=== PATIENT | male | born 1965 | race Caucasian/White ===

== ENCOUNTER 2017-02-05 19:26 | Inpatient (IN) | payer OTHER ==
[~2017-02-05] VITALS: Ht 175.3 cm; Wt 85.0 kg
--- NOTE | 2017-02-05 19:50 | RAD ---
CT HEAD WO CONTRAST dated 02/05/2017 7:26 PM Indication: Sudden onset weakness, left arm numbness, possible CVA. Comparison: No comparison is available. Technique: Contiguous axial imaging of the head was performed from skull base to vertex. No contrast administered. One or more of the following individualized dose reduction techniques were utilized for this examination: 1. Automated exposure control 2. Adjustment of the mA and/or kV according to patient size 3. Use of iterative reconstruction technique Findings: Study is somewhat limited by motion artifact. Ventricles and sulci are within normal limits for age. No midline shift or mass effect. Brain parenchyma is of normal attenuation. No hemorrhage or extra-axial collection. Beam Mitchell artifact at the skull base limits evaluation of the posterior fossa and brainstem. Visualized paranasal sinuses and mastoid air cells are clear. No apparent calvarial abnormality. IMPRESSION: 1. No evidence of acute intracranial hemorrhage or mass. 2. No CT evidence of acute CVA. If there is persistent clinical concern for evolving infarct, MRI could better evaluate. Results discussed with ER physician at approximately 7:40 PM on the day of the exam. Electronically signed by: Vamshi Lambert MD (02/05/2017 7:47 PM) [facility]
[2017-02-05 19:53] LABS: BASO # 0.1 x10^3/uL (0.0-0.2); BASO % 1 % (0-3); EOS % 1 % (0-3); HEMATOCRIT 41.8 % (39.0-53.0); HEMOGLOBIN 14.3 g/dL (13.0-17.5); LYMPH # 1.5 x10^3/uL (1.0-4.8); LYMPH % 13 % (24-48); MEAN CORPUSCULAR HEMOGLOBIN 31 pg (25-35); MEAN CORPUSCULAR HGB CONC 34 g/dL (31-37); MEAN CORPUSCULAR VOLUME 91 fL (79-100); MONO % 8 % (0-9); NEUT % 77 % (31-73); PLATELET COUNT 230 x10^3/uL (140-400); RED BLOOD COUNT 4.57 x10^6/uL (4.30-5.70); RED CELL DISTRIBUTION WIDTH 12.7 % (11.5-14.5); WHITE BLOOD COUNT 12.1 x10^3/uL (4.0-11.0)
[2017-02-05 20:02] LABS: PROTHROMBIN TIME PATIENT 12.4 SEC (11.7-14.0)
[2017-02-05 20:03] LABS: CALCIUM 9.5 mg/dL (8.5-10.1); CREATININE 1.2 mg/dL (0.7-1.3); GFR 63.8; POTASSIUM 3.7 mmol/L (3.5-5.1)
[2017-02-05] MEDS ORDERED: ASPIRIN 325 MG TABLET ONE (20:21)
[2017-02-05] MEDS ORDERED: fentaNYL PF VIAL 100 MCG/2 ML VIAL IV PRN (20:30)
[2017-02-05] MEDS ORDERED: ONDANSETRON PF 4 MG/2 ML VIAL. IV ONE (20:45)
[2017-02-05] MEDS ORDERED: ASPIRIN 325 MG TABLET PO ONE (20:45)
[2017-02-05] MEDS ORDERED: ZOLPIDEM 5 MG TABLET. PO PRN (21:30)
[2017-02-05] MEDS ORDERED: cloNIDine HCL 0.1 MG TABLET PO PRN (21:30)
[2017-02-05] MEDS ORDERED: IBUPROFEN 600 MG TABLET. PO PRN (21:30)
[2017-02-05] MEDS ORDERED: diazePAM 2 MG TABLET PO PRN (21:30)
--- NOTE | 2017-02-05 21:35 | PDOC1 ---
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 ALso difficulty in punching the codes/numbers that he usually would do at work with no difficulty. Happened around 5: 30 PM (within TPA window). he arrived via EMS as a code stroke, BUt NIH scale is 1, no slurred speech or facial asymmetry, is weak on left side maybe 4/5 from 5/5 on RT, NUmbness still persists on left fingers and 10/10 incapacitating headache shoots up to his back, nape and whole head, BP better, was high on admit. Also on MMT, demonstrates sciatica like sxs from feet all the way to his hip on RT leg raising,Only past medical is gout on ibuprofen and allopurinol prn. Gets gout in his feet, none currently/. NOt known HTN, no CVA or DM or CAD, Non smoker, occasional etoh drinker Addendum: report now in had soem SZ like activity, lower body shaking? Pt does have some gaps/lapse in memory from the whole event today but no TOTAl LOC,. HE could hear people calling his name,asking him to drink water Past Medical History Rheumatologic: Gout Past Surgical History Past Surgical History: No pertinent history Family History Family History: Hypertension Social History Smoke: No ALCOHOL: occassional Drugs: None Current Medications Current Medications Current Medications Aspirin (Debi Aspirin) 325 mg STK-MED ONCE .ROUTE ; Start 02/05/17 at 20:21; Stop 02/05/17 at 20:22; Status DC Fentanyl Citrate (Fentanyl 2ml Vial) 25 mcg PRN Q15MIN PRN IV PAIN GREATER THAN 3/10 Last administered on 02/05/17 20:41; Start 02/05/17 at 20:30; Stop at 20:29 Ondansetron HCl (Zofran) 4 mg 1X ONCE IV Last administered on 02/05/17 20:39 ; Start 02/05/17 at 20:45; Stop 02/05/17 at 20:46; Status DC Aspirin (Debi Aspirin) 325 mg 1X ONCE PO Last administered on 02/05/17t 20:38 ; Start 02/05/17 at 20:45; Stop 02/05/17 at 20:46; Status DC Allergies Allergies: Coded Allergies: No Known Drug Allergies (Unverified , 02/05/17) ROS Review of System per HPI, all esle is neg Physical Exam General: Alert, Oriented X3, Cooperative, No acute distress HEENT: PERRLA Lungs: Clear to auscultation Heart: S1S2, RRR, no thrills, no rubs, no gallops, no murmurs Cardiovascular: S1, S2 Abdomen: Normal bowel sounds, Soft, No tenderness, No hepatosplenomegaly, No masses Male Genitals Exam: normal genitalia, normal prostate Extremities: No clubbing, No cyanosis, No edema, Normal pulses, No tenderness/ swelling Skin: No rashes, No breakdown, No significant lesion Neuro: Normal gait, Normal speech, Normal tone, Sensation intact, Cranial nerves 3-12 NL, Reflexes 2+, Other (4/5 MMT RUE and RLE, Positive SLR RT leg) Vitals Vitals Vital Signs Date Time Temp Pulse Resp B/P (MAP) Pulse Ox O2 Delivery O2 Flow Rate FiO2 02/05/17 20:46 92 18 153/86 (108) 96 Room Air 02/05/17 19:26 98.2 98.2 Labs Labs Laboratory Tests Test 02/05/17 19:35 02/05/17 19:40 Glucose (Fingerstick) 133 mg/dL (70-99) White Blood Count 12.1 x10^3/uL (4.0-11.0) Red Blood Count 4.57 x10^6/uL (4.30-5.70) Hemoglobin 14.3 g/dL (13.0-17.5) Hematocrit 41.8 % (39.0-53.0) Mean Corpuscular Volume 91 fL (79-100) Mean Corpuscular Hemoglobin 31 pg (25-35) Mean Corpuscular Hemoglobin Concent 34 g/dL (31-37) Red Cell Distribution Width 12.7 % (11.5-14.5) Platelet Count 230 x10^3/uL (140-400) Neutrophils (%) (Auto) 77 % (31-73) Lymphocytes (%) (Auto) 13 % (24-48) Monocytes (%) (Auto) 8 % (0-9) Eosinophils (%) (Auto) 1 % (0-3) Basophils (%) (Auto) 1 % (0-3) Neutrophils # (Auto) 9.3 x10^3uL (1.8-7.7) Lymphocytes # (Auto) 1.5 x10^3/uL (1.0-4.8) Monocytes # (Auto) 1.0 x10^3/uL (0.0-1.1) Eosinophils # (Auto) 0.1 x10^3/uL (0.0-0.7) Basophils # (Auto) 0.1 x10^3/uL (0.0-0.2) Prothrombin Time 12.4 SEC (11.7-14.0) Prothromb Time International Ratio 1.0 (0.8-1.1) Activated Partial Thromboplast Time 26 SEC (24-38) Sodium Level 143 mmol/L (136-145) Potassium Level 3.7 mmol/L (3.5-5.1) Chloride Level 105 mmol/L (98-107) Carbon Dioxide Level 26 mmol/L (21-32) Anion Gap 12 (6-14) Blood Urea Nitrogen 20 mg/dL (8-26) Creatinine 1.2 mg/dL (0.7-1.3) Estimated GFR (Cockcroft-Gault) 63.8 Glucose Level 127 mg/dL (70-99) Calcium Level 9.5 mg/dL (8.5-10.1) Troponin I Quantitative < 0.017 ng/mL (0.000-0.055) Laboratory Tests Test 02/05/17 19:35 02/05/17 19:40 Glucose (Fingerstick) 133 mg/dL (70-99) White Blood Count 12.1 x10^3/uL (4.0-11.0) Red Blood Count 4.57 x10^6/uL (4.30-5.70) Hemoglobin 14.3 g/dL (13.0-17.5) Hematocrit 41.8 % (39.0-53.0) Mean Corpuscular Volume 91 fL (79-100) Mean Corpuscular Hemoglobin 31 pg (25-35) Mean Corpuscular Hemoglobin Concent 34 g/dL (31-37) Red Cell Distribution Width 12.7 % (11.5-14.5) Platelet Count 230 x10^3/uL (140-400) Neutrophils (%) (Auto) 77 % (31-73) Lymphocytes (%) (Auto) 13 % (24-48) Monocytes (%) (Auto) 8 % (0-9) Eosinophils (%) (Auto) 1 % (0-3) Basophils (%) (Auto) 1 % (0-3) Neutrophils # (Auto) 9.3 x10^3uL (1.8-7.7) Lymphocytes # (Auto) 1.5 x10^3/uL (1.0-4.8) Monocytes # (Auto) 1.0 x10^3/uL (0.0-1.1) Eosinophils # (Auto) 0.1 x10^3/uL (0.0-0.7) Basophils # (Auto) 0.1 x10^3/uL (0.0-0.2) Prothrombin Time 12.4 SEC (11.7-14.0) Prothromb Time International Ratio 1.0 (0.8-1.1) Activated Partial Thromboplast Time 26 SEC (24-38) Sodium Level 143 mmol/L (136-145) Potassium Level 3.7 mmol/L (3.5-5.1) Chloride Level 105 mmol/L (98-107) Carbon Dioxide Level 26 mmol/L (21-32) Anion Gap 12 (6-14) Blood Urea Nitrogen 20 mg/dL (8-26) Creatinine 1.2 mg/dL (0.7-1.3) Estimated GFR (Cockcroft-Gault) 63.8 Glucose Level 127 mg/dL (70-99) Calcium Level 9.5 mg/dL (8.5-10.1) Troponin I Quantitative < 0.017 ng/mL (0.000-0.055) VTE Prophylaxis Ordered VTE Prophylaxis Devices: Yes VTE Pharmacological Prophylaxi: Yes Assessment/Plan Assessment/Plan 1. RT UE and RLE weakness, 4./5 on MMT, numbness RT fingers 2. POssible SZ like activity - no HX SZ, some lapse in memory but no TOTAl LOC, no urinary or bowel incontinence - as per report, family did not witness it 3. Hx gout, none active now 4. Accelerated hTN POA<, better - no dx of HTN PLAn: Admit Neuro checks (NIH scale 1) MRI brain mary jo ASA qD - got ASA at er Check lipids Keep tele SZ watch prn pushes iV for BP excursions PT./OT COnsult physiatry re possible sciatica RT leg - if proven to be can start some pO meds PO pain meds for h.a I did not choose tramadol since can lower SZ threshold and given ? SZ like activity in the field Dw ER MD [facility] and [facility] HEAD an dpt and family at bedside EDVIN MARTINO MD Feb 05, 2017 21:35
[2017-02-05] MEDS: ONDANSETRON PF 4 MG/2 ML VIAL. IV PRN (21:47)
[2017-02-05] MEDS: fentaNYL PF VIAL 100 MCG/2 ML VIAL IV PRN (21:58)
[2017-02-05] MEDS ORDERED: CONTRAST GIVEN MC PRN (22:00)
[2017-02-05] MEDS ORDERED: IOHEXOL 350 MG/ML 100 ML VIAL. IV ONE (22:00)
--- NOTE | 2017-02-05 22:35 | RAD ---
CTA head and neck with contrast dated 02/05/2017. Comparison made to head CT dated 02/05/2017. CLINICAL INDICATION: Possible seizure. Left-sided weakness. Severe headache. TECHNIQUE: Contiguous axial imaging of the head and neck performed following the intravenous administration of 75 cc Omnipaque 350. Study performed as dedicated CTA with thin cut coronal and sagittal MIPS reconstructions and 3-D rotational reconstructions. One or more of the following individualized dose reduction techniques were utilized for this examination: 1. Automated exposure control 2. Adjustment of the mA and/or kV according to patient size 3. Use of iterative reconstruction technique Carotid Stenosis calculations for CT, MR, and conventional angiography are based upon measurements of the distal ICA diameter in accordance with the NASCET methodology. Stenosis calculations for carotid ultrasound studies are derived from validated velocity criteria which are known to correlate with the NASCET methodology. FINDINGS: Contrast bolus is adequate. Aortic arch is normal in caliber. Arch anatomy is standard. Bilateral subclavian and vertebral arteries are patent. No intimal flap or focal stenosis. Common carotid arteries are patent at the origin. No significant calcific or soft plaque at the carotid bifurcation. Bilateral internal carotid arteries are patent to the skull base. No significant stenosis. Petrous and cavernous internal carotid arteries are patent. Bilateral FAUSTINO and MCA branches are symmetric. Patent anterior communicating artery. No stenosis or aneurysm. Intradural vertebral arteries are patent. Basilar artery is well formed. Bilateral ror engineer are patent. Postcontrast imaging of the brain shows no abnormal enhancement. Dural venous sinuses are grossly patent. Paranasal sinuses and mastoid air cells are clear. No significant soft tissue abnormality. Limited images of lung apices are clear. No apparent bony abnormality. IMPRESSION: 1. No evidence of hemodynamically significant stenosis or aneurysm. Electronically signed by: Vamshi Lambert MD (02/05/2017 10:31 PM) [facility]
[2017-02-05 22:53] LABS: BILIRUBIN,URINE NEGATIVE (NEG); GLUCOSE,URINE NEGATIVE (NEG); NITRITE,URINE NEGATIVE (NEG); PROTEIN,URINE NEGATIVE (NEG-TRACE); UROBILINOGEN,URINE 0.2 mg/dL (0.2 mg/dL)
[2017-02-05 22:58] LABS: BARBITURATES NEG (NEG); BENZODIAZEPINES NEG (NEG); CANNABINOIDS NEG (NEG); COCAINE NEG (NEG); METHADONE NEG (NEG); OPIATES NEG (NEG); PHENCYCLIDINE NEG (NEG)
[2017-02-05 22:59] LABS: BACTERIA,URINE 0 /HPF (0-FEW); RBC,URINE 0 /HPF (0-2); SQUAMOUS EPITHELIAL CELL,UR FEW /LPF
[2017-02-05 23:00] VITALS: BP 147/84
--- NOTE | 2017-02-05 23:00 | ED.ADGEN ---
Past Medical History Past Medical History: Other Additional Past Medical Histor: gout Past Surgical History: No Surgical History Alcohol Use: None Drug Use: None Adult General Chief Complaint Chief Complaint: NEURO SYMPTOMS/DEFICITS HPI HPI Patient is a 51 year old woman, history of gout, for which he takes indomethacin, who presents to the emergency department via EMS with report of headache, blurred vision, and weakness the left upper extremity and left lower extremity associated with numbness in the left upper and lower extremity. Code stroke was called en route based on EMS report, patient was taken immediately to the CT scanner for imaging upon arrival to the emergency department. He denies any difficult swallowing or breathing, any chest pain or shortness breath , any difficulty with speech, any injuries, any similar symptoms previously. Patient states he has experienced headache such as this before "not this bad", states begins in the back of his head and radiates to the top of his head. No injuries, no neck pain, no fevers or chills. Upon arousing the emergency department, patient complains of feeling weak in his left upper extremity, and his right lower extremity, with numbness and tingling. Denies any other complaints. Initial INH of 1, for decreased sensation in the left upper and lower extremity. Patient does have 5-5 strength on both sides and examination, otherwise unremarkable. Denies any drugs, alcohol, cigarettes, states he isn't taking Excedrin as needed over the past several weeks due to headaches. Review of Systems Review of Systems Constitutional: Denies fever or chills. [] Eyes: Denies change in visual acuity. [] HENT: Denies nasal congestion or sore throat. [] Respiratory: Denies cough or shortness of breath. [] Cardiovascular: Denies chest pain or edema. [] GI: Denies abdominal pain, nausea, vomiting, bloody stools or diarrhea. [] : Denies dysuria. [] Musculoskeletal: Denies back pain or joint pain. [] Integument: Denies rash. [] Neurologic: Complaining of headache, with focal weakness in the left upper and left lower extremity, associated with numbness and tingling. Blurred vision in both eyes. No visual field deficits. Endocrine: Denies polyuria or polydipsia. [] Lymphatic: Denies swollen glands. [] Psychiatric: Denies depression or anxiety. [] Current Medications Current Medications Current Medications Medications (Trade) Dose Ordered Sig/Manuel Start Time Stop Time Status Last Admin Dose Admin Aspirin (Debi Aspirin) 325 mg STK-MED ONCE 02/05/17 20:21 02/05/17 20:22 DC Allergies Allergies Allergies Coded Allergies Type Severity Reaction Last Updated Verified No Known Drug Allergies 02/05/17 No Physical Exam Physical Exam Constitutional: Well developed, well nourished, no acute distress, non-toxic appearance. [] HENT: Normocephalic, atraumatic, bilateral external ears normal, oropharynx moist, no oral exudates, nose normal. [] Eyes: PERRLA, EOMI, conjunctiva normal, no discharge. [] Neck: Normal range of motion, no tenderness, supple, no stridor. [] Cardiovascular:Heart rate regular rhythm, no murmur [] Lungs & Thorax: Bilateral breath sounds clear to auscultation [] Abdomen: Bowel sounds normal, soft, no tenderness, no masses, no pulsatile masses. [] Skin: Warm, dry, no erythema, no rash. [] Back: No tenderness, no CVA tenderness. [] Extremities: No tenderness, no cyanosis, no clubbing, ROM intact, no edema. [] Neurologic: Alert and oriented X 3, normal motor function, normal sensory function, no focal deficits noted. [] Psychologic: Affect normal, judgement normal, mood normal. [] Current Patient Data Vital Signs Vital Signs Date Time Temp Pulse Resp B/P (MAP) Pulse Ox O2 Delivery O2 Flow Rate FiO2 02/05/17 20:26 96 18 148/87 (107) 98 Room Air 02/05/17 19:26 98.2 98.2 Lab Values Laboratory Tests Test 02/05/17 19:35 02/05/17 19:40 Glucose (Fingerstick) 133 mg/dL (70-99) H White Blood Count 12.1 x10^3/uL (4.0-11.0) H Red Blood Count 4.57 x10^6/uL (4.30-5.70) Hemoglobin 14.3 g/dL (13.0-17.5) Hematocrit 41.8 % (39.0-53.0) Mean Corpuscular Volume 91 fL (79-100) Mean Corpuscular Hemoglobin 31 pg (25-35) Mean Corpuscular Hemoglobin Concent 34 g/dL (31-37) Red Cell Distribution Width 12.7 % (11.5-14.5) Platelet Count 230 x10^3/uL (140-400) Neutrophils (%) (Auto) 77 % (31-73) H Lymphocytes (%) (Auto) 13 % (24-48) L Monocytes (%) (Auto) 8 % (0-9) Eosinophils (%) (Auto) 1 % (0-3) Basophils (%) (Auto) 1 % (0-3) Neutrophils # (Auto) 9.3 x10^3uL (1.8-7.7) H Lymphocytes # (Auto) 1.5 x10^3/uL (1.0-4.8) Monocytes # (Auto) 1.0 x10^3/uL (0.0-1.1) Eosinophils # (Auto) 0.1 x10^3/uL (0.0-0.7) Basophils # (Auto) 0.1 x10^3/uL (0.0-0.2) Prothrombin Time 12.4 SEC (11.7-14.0) Prothrombin Time INR 1.0 (0.8-1.1) PTT 26 SEC (24-38) Sodium Level 143 mmol/L (136-145) Potassium Level 3.7 mmol/L (3.5-5.1) Chloride Level 105 mmol/L (98-107) Carbon Dioxide Level 26 mmol/L (21-32) Anion Gap 12 (6-14) Blood Urea Nitrogen 20 mg/dL (8-26) Creatinine 1.2 mg/dL (0.7-1.3) Estimated GFR (Cockcroft-Gault) 63.8 Glucose Level 127 mg/dL (70-99) H Calcium Level 9.5 mg/dL (8.5-10.1) Troponin I Quantitative < 0.017 ng/mL (0.000-0.055) Laboratory Tests 02/05/17 19:40 Laboratory Tests 02/05/17 19:40 EKG EKG EC: Sinus tachycardia, heart rate 104, upright axis, QTC of 421, HI 126, QRS of 86, no ST elevations or depressions, no prior for comparison, as interpreted by me. Radiology/Procedures Radiology/Procedures Patient with a GCS of 15, with an NIH of 1, due to diminished sensation reported in the upper and lower extremity, CT discussed with radiologist no acute findings identified. I did discuss these findings with Dr. Martin, as patient is now sitting his symptoms began around 5:30, we are beyond the window for TPA, TPA would not be indicated this time due to the patient's low any stroke scale. I did discuss findings with patient and family at bedside, is agreeable for [facility] or the hospital obtaining MRI and stroke workup. Patient's EMS crew return to the emergency department in transferring another patient, and gave me additional information, that I was not aware previously, that the patient was witnessed exhibiting "a total body shaking seizure-like activity", by his coworkers while he was in the cab of his vehicle. I discussed this with patient, he does not recall this occurring, states he remembers eating in the vehicle, and then was being given water. As stated, this information was not immediately relayed to me. Patient is still complaint of headache, has received fentanyl in the ED, and Zofran. INH stroke scale remains 1. No other change in symptoms or examination. I did speak with Dr. Martin, and update her with these findings. Patient recommendation, will obtain CTA of the head and neck at this time, and then obtain MRI brain with and without contrast , per protocol. Patient seizure precautions, no further seizure activity or other maladies identified. CTA obtained, does not reveal evidence of concerning findings. I did speak with Dr. Limon of internal medicine, patient accepted to her service as a full admission to the medical telemetry floor, for further evaluation of neurologic symptoms, possible CVA versus new onset seizure, bridge orders entered per discussion. Patient remained stable in the emergency department at time of transfer to the floor. Course & Med Decision Making Course & Med Decision Making Pertinent Labs and Imaging studies reviewed. (See chart for details) [] Dragon Disclaimer Dragon Disclaimer This electronic medical record was generated, in whole or in part, using a voice recognition dictation system. Departure Impression: Primary Impression: Seizure Additional Impressions: Headache Left-sided weakness Disposition: ADMITTED INPATIENT Admitting Physician: Marissa Limon Condition: IMPROVED Problem Qualifiers ANNA PEGUERO DO Feb 05, 2017 23:00
[2017-02-05 23:25] VITALS: BP 147/84
[2017-02-06] MEDS: fentaNYL PF VIAL 100 MCG/2 ML VIAL IV PRN ×3 (01:59→08:13)
[2017-02-06] MEDS ORDERED: ALLO300T PO (02:19)
[2017-02-06] MEDS ORDERED: ibuprofen (02:19)
[2017-02-06 03:10] VITALS: BP 131/78
[2017-02-06] MEDS: ONDANSETRON PF 4 MG/2 ML VIAL. IV PRN ×2 (05:28→14:01)
--- NOTE | 2017-02-06 06:33 | EKG ---
[facility] [address] [place] [address] Test Date: 2017-02-05 Test Time: 19:37:27 Pat Name: KEV MIDDLETON Department: Room: 3 1 Gender: M Survey Research Professor: : 1965 Requested By: ANNA PEGUERO Order Number: [id number] Reading MD: Navdeep Tapia Measurements Intervals Starlight Rate: 104 P: 41 MN: 126 QRS: 39 QRSD: 86 T: 15 QT: 316 QTc: 421 Interpretive Statements SINUS TACHYCARDIA Electronically Signed On 02-11-2017 10:17:39 CDT by Navdeep Tapia
[2017-02-06 07:00] VITALS: BP 129/86
[2017-02-06 07:39] LABS: ISTAT INR 1.1 (0.9-1.1)
[2017-02-06 07:41] LABS: POTASSIUM ISTAT 3.7 mmol/L (3.5-5.0)
--- NOTE | 2017-02-06 08:03 | RAD ---
Portable chest, 02/05/2017: History: Weakness, syncope The heart size and pulmonary vascularity are normal. No pulmonary infiltrates are seen. There is no evidence of pleural fluid. Moderate spurring is present in the spine. IMPRESSION: No acute cardiopulmonary abnormality is detected.
[2017-02-06] MEDS: ASPIRIN 325 MG TABLET PO SCH (08:13)
[2017-02-06] MEDS ORDERED: MECLIZINE HCL 12.5 MG TABLET. PO PRN (08:45)
--- NOTE | 2017-02-06 09:04 | PDOC ---
PROGRESS NOTES Subjective Subjective She did not sleep well. Objective Objective Vital Signs Date Time Temp Pulse Resp B/P (MAP) Pulse Ox O2 Delivery O2 Flow Rate FiO2 02/06/17 08:13 97 Nasal Cannula 2.0 02/06/17 07:00 97.6 86 18 129/86 (100) 97.6 Physical Exam Physical Exam She is alert and comfortable and continues with [id number] using left upper extremity and dizziness with mobility. Assessment Assessment Problems Medical Problems: (1) Headache Status: Acute (2) Seizure Status: Acute Plan Plan of Care To rehab when medically stable. Comment Review of Relevant I have reviewed the following items anders (where applicable) has been applied. Labs Laboratory Tests Test 02/05/17 19:35 02/05/17 19:40 02/05/17 19:45 02/05/17 19:54 Glucose (Fingerstick) 133 mg/dL (70-99) White Blood Count 12.1 x10^3/uL (4.0-11.0) Red Blood Count 4.57 x10^6/uL (4.30-5.70) Hemoglobin 14.3 g/dL (13.0-17.5) Hematocrit 41.8 % (39.0-53.0) Mean Corpuscular Volume 91 fL (79-100) Mean Corpuscular Hemoglobin 31 pg (25-35) Mean Corpuscular Hemoglobin Concent 34 g/dL (31-37) Red Cell Distribution Width 12.7 % (11.5-14.5) Platelet Count 230 x10^3/uL (140-400) Neutrophils (%) (Auto) 77 % (31-73) Lymphocytes (%) (Auto) 13 % (24-48) Monocytes (%) (Auto) 8 % (0-9) Eosinophils (%) (Auto) 1 % (0-3) Basophils (%) (Auto) 1 % (0-3) Neutrophils # (Auto) 9.3 x10^3uL (1.8-7.7) Lymphocytes # (Auto) 1.5 x10^3/uL (1.0-4.8) Monocytes # (Auto) 1.0 x10^3/uL (0.0-1.1) Eosinophils # (Auto) 0.1 x10^3/uL (0.0-0.7) Basophils # (Auto) 0.1 x10^3/uL (0.0-0.2) Prothrombin Time 12.4 SEC (11.7-14.0) 13.0 Sec (10.0-14.0) Prothromb Time International Ratio 1.0 (0.8-1.1) Activated Partial Thromboplast Time 26 SEC (24-38) Sodium Level 143 mmol/L (136-145) Potassium Level 3.7 mmol/L (3.5-5.1) Chloride Level 105 mmol/L (98-107) Carbon Dioxide Level 26 mmol/L (21-32) Anion Gap 12 (6-14) 17 mmol/L (6-14) Blood Urea Nitrogen 20 mg/dL (8-26) Creatinine 1.2 mg/dL (0.7-1.3) Estimated GFR (Cockcroft-Gault) 63.8 Glucose Level 127 mg/dL (70-99) 127 mg/dL (70-99) Calcium Level 9.5 mg/dL (8.5-10.1) Troponin I Quantitative < 0.017 ng/mL (0.000-0.055) Bedside Hemoglobin 13.3 g/dL (14-18) Bedside Hematocrit 39 % (37-52) Bedside Sodium 144 mmol/L (135-145) Bedside Potassium 3.7 mmol/L (3.5-5.0) Bedside Chloride 108 mmol/L (98-110) Bedside Total CO2 23 mmol/L (23-32) Bedside Blood Urea Nitrogen 18 mg/dL (8-26) Bedside Creatinine 1.1 mg/dL (0.5-1.4) Bedside Ionized Calcium (Rcahael) 1.15 mmol/L (1.13-1.32) Bedside INR (LAB) 1.1 (0.9-1.1) Test 02/05/17 22:48 Urine Collection Type Unknown Urine Color Yellow Urine Clarity Turbid Urine pH 6.0 Urine Specific [place] >=1.030 Urine Protein Negative mg/dL (NEG-TRACE) Urine Glucose (UA) Negative mg/dL (NEG) Urine Ketones (Stick) 15 mg/dL (NEG) Urine Blood Negative (NEG) Urine Nitrite Negative (NEG) Urine Bilirubin Negative (NEG) Urine Urobilinogen Dipstick 0.2 mg/dL (0.2 mg/dL) Urine Leukocyte Esterase Negative (NEG) Urine RBC 0 /HPF (0-2) Urine WBC 5-10 /HPF (0-4) Urine Squamous Epithelial Cells Few /LPF Urine Amorphous Sediment Present /HPF Urine Bacteria 0 /HPF (0-FEW) Urine Mucus Marked /LPF Urine Opiates Screen Neg (NEG) Urine Methadone Screen Neg (NEG) Urine Barbiturates Neg (NEG) Urine Phencyclidine Screen Neg (NEG) Urine Amphetamine/Methamphetamine Neg (NEG) Urine Benzodiazepines Screen Neg (NEG) Urine Cocaine Screen Neg (NEG) Urine Cannabinoids Screen Neg (NEG) Urine Ethyl Alcohol Neg (NEG) Laboratory Tests Test 02/05/17 19:35 02/05/17 19:40 02/05/17 19:45 02/05/17 19:54 Glucose (Fingerstick) 133 mg/dL (70-99) White Blood Count 12.1 x10^3/uL (4.0-11.0) Red Blood Count 4.57 x10^6/uL (4.30-5.70) Hemoglobin 14.3 g/dL (13.0-17.5) Hematocrit 41.8 % (39.0-53.0) Mean Corpuscular Volume 91 fL (79-100) Mean Corpuscular Hemoglobin 31 pg (25-35) Mean Corpuscular Hemoglobin Concent 34 g/dL (31-37) Red Cell Distribution Width 12.7 % (11.5-14.5) Platelet Count 230 x10^3/uL (140-400) Neutrophils (%) (Auto) 77 % (31-73) Lymphocytes (%) (Auto) 13 % (24-48) Monocytes (%) (Auto) 8 % (0-9) Eosinophils (%) (Auto) 1 % (0-3) Basophils (%) (Auto) 1 % (0-3) Neutrophils # (Auto) 9.3 x10^3uL (1.8-7.7) Lymphocytes # (Auto) 1.5 x10^3/uL (1.0-4.8) Monocytes # (Auto) 1.0 x10^3/uL (0.0-1.1) Eosinophils # (Auto) 0.1 x10^3/uL (0.0-0.7) Basophils # (Auto) 0.1 x10^3/uL (0.0-0.2) Prothrombin Time 12.4 SEC (11.7-14.0) 13.0 Sec (10.0-14.0) Prothromb Time International Ratio 1.0 (0.8-1.1) Activated Partial Thromboplast Time 26 SEC (24-38) Sodium Level 143 mmol/L (136-145) Potassium Level 3.7 mmol/L (3.5-5.1) Chloride Level 105 mmol/L (98-107) Carbon Dioxide Level 26 mmol/L (21-32) Anion Gap 12 (6-14) 17 mmol/L (6-14) Blood Urea Nitrogen 20 mg/dL (8-26) Creatinine 1.2 mg/dL (0.7-1.3) Estimated GFR (Cockcroft-Gault) 63.8 Glucose Level 127 mg/dL (70-99) 127 mg/dL (70-99) Calcium Level 9.5 mg/dL (8.5-10.1) Troponin I Quantitative < 0.017 ng/mL (0.000-0.055) Bedside Hemoglobin 13.3 g/dL (14-18) Bedside Hematocrit 39 % (37-52) Bedside Sodium 144 mmol/L (135-145) Bedside Potassium 3.7 mmol/L (3.5-5.0) Bedside Chloride 108 mmol/L (98-110) Bedside Total CO2 23 mmol/L (23-32) Bedside Blood Urea Nitrogen 18 mg/dL (8-26) Bedside Creatinine 1.1 mg/dL (0.5-1.4) Bedside Ionized Calcium (Rachael) 1.15 mmol/L (1.13-1.32) Bedside INR (LAB) 1.1 (0.9-1.1) Test 02/05/17 22:48 Urine Collection Type Unknown Urine Color Yellow Urine Clarity Turbid Urine pH 6.0 Urine Specific [place] >=1.030 Urine Protein Negative mg/dL (NEG-TRACE) Urine Glucose (UA) Negative mg/dL (NEG) Urine Ketones (Stick) 15 mg/dL (NEG) Urine Blood Negative (NEG) Urine Nitrite Negative (NEG) Urine Bilirubin Negative (NEG) Urine Urobilinogen Dipstick 0.2 mg/dL (0.2 mg/dL) Urine Leukocyte Esterase Negative (NEG) Urine RBC 0 /HPF (0-2) Urine WBC 5-10 /HPF (0-4) Urine Squamous Epithelial Cells Few /LPF Urine Amorphous Sediment Present /HPF Urine Bacteria 0 /HPF (0-FEW) Urine Mucus Marked /LPF Urine Opiates Screen Neg (NEG) Urine Methadone Screen Neg (NEG) Urine Barbiturates Neg (NEG) Urine Phencyclidine Screen Neg (NEG) Urine Amphetamine/Methamphetamine Neg (NEG) Urine Benzodiazepines Screen Neg (NEG) Urine Cocaine Screen Neg (NEG) Urine Cannabinoids Screen Neg (NEG) Urine Ethyl Alcohol Neg (NEG) Medications Current Medications Aspirin (Debi Aspirin) 325 mg STK-MED ONCE .ROUTE ; Start 02/05/17 at 20:21; Stop 02/05/17 at 20:22; Status DC Fentanyl Citrate (Fentanyl 2ml Vial) 25 mcg PRN Q15MIN PRN IV PAIN GREATER THAN 3/10 Last administered on 02/05/17 20:41; Start 02/05/17 at 20:30; Stop at 21:53; Status DC Ondansetron HCl (Zofran) 4 mg 1X ONCE IV Last administered on 02/05/17 20:39 ; Start 02/05/17 at 20:45; Stop 02/05/17 at 20:46; Status DC Aspirin ([employer] Aspirin) 325 mg 1X ONCE PO Last administered on 02/05/17 20:38 ; Start 02/05/17 at 20:45; Stop 02/05/17 at 20:46; Status DC Ibuprofen (Motrin) 600 mg PRN Q6HRS PRN PO INFLAMMATION; Start 02/05/17 at 21: 30 Fentanyl Citrate (Fentanyl 2ml Vial) 50 mcg PRN Q2HR PRN IV PAIN Last administered on 02/06/17 08:13; Start 02/05/17 at 21:30 Ondansetron HCl (Zofran) 4 mg PRN Q6HRS PRN IV NAUSEA/VOMITING Last administered on 02/06/17 05:28; Start 02/05/17 at 21:30 Aspirin ([employer] Aspirin) 325 mg DAILYWBKFT PO Last administered on 02/06/17 08: 13; Start 02/06/17 at 08:00 Zolpidem Tartrate (Ambien) 2.5 mg PRN QHS PRN PO INSOMNIA; Start 02/05/17 at 21 :30 Clonidine HCl (Catapres) 0.1 mg PRN Q1HR PRN PO HYPERTENSION, SEE COMMENTS Last administered on 02/05/17 22:20; Start 02/05/17 at 21:30 Diazepam (Valium) 2 mg PRN TID PRN PO ANXIETY; Start 02/05/17 at 21:30 Iohexol (Omnipaque 350 Mg/ml) 75 ml 1X ONCE IV Last administered on 02/05/17 22:21; Start 02/05/17 at 22:00; Stop 02/05/17 at 22:01; Status DC Info (Do NOT chart on this entry -- for MONITORING) 1 each PRN DAILY PRN MC SEE COMMENTS; Start 02/05/17 at 22:00; Stop 02/07/17 at 21:59 Acetaminophen/ Butalbital/ Caffeine (Fioricet) 2 tab PRN Q6HRS PRN PO MIGRAINE HEADACHE; Start 02/06/17 at 08:45 Meclizine HCl (Antivert) 12.5 mg PRN Q6HRS PRN PO DIZZINESS; Start 02/06/17 at 08:45 Active Scripts Active Reported [ibuprofen] PRN Allopurinol 300 Mg Tablet 1 Tab PO DAILY PRN Vitals/I & O Vital Sign - Last 24 Hours 02/05/17 02/05/17 02/05/17 02/05/17 19:26 19:48 19:56 20:06 Temp 98.2 98.2 Pulse 99 102 100 98 Resp 18 20 18 18 B/P (MAP) 154/88 (110) 162/98 (119) 161/90 (113) 157/92 (113) Pulse Ox 98 97 97 98 O2 Delivery Room Air Room Air Room Air Room Air 02/05/17 02/05/17 02/05/17 02/05/17 20:16 20:26 20:36 20:41 Pulse 96 96 96 Resp 18 18 18 18 B/P (MAP) 158/95 (116) 148/87 (107) 152/81 (104) Pulse Ox 97 98 97 97 O2 Delivery Room Air Room Air Room Air Room Air 02/05/17 02/05/17 02/05/17 02/05/17 20:46 20:56 21:06 21:16 Pulse 92 94 90 90 Resp 18 20 16 18 B/P (MAP) 153/86 (108) 142/85 (104) 149/75 (99) 158/85 (109) Pulse Ox 96 94 96 96 O2 Delivery Room Air Room Air Room Air Room Air 02/05/17 02/05/17 02/05/17 02/05/17 21:26 21:36 21:46 21:58 Pulse 90 94 100 Resp 18 16 14 16 B/P (MAP) 152/79 (103) 159/94 (115) 171/89 (116) Pulse Ox 97 98 99 O2 Delivery Room Air Room Air Room Air 02/05/17 02/05/17 02/05/17 02/05/17 22:20 22:21 22:51 23:00 Pulse 92 98 88 Resp 16 18 B/P (MAP) 171/89 158/80 (106) 152/84 (106) Pulse Ox 98 96 O2 Delivery Nasal Cannula Room Air Nasal Cannula O2 Flow Rate 2.0 2.0 02/05/17 02/05/17 02/06/17 02/06/17 23:00 23:25 01:59 03:10 Temp 98.3 98.3 98.1 98.3 98.3 98.1 Pulse 85 76 Resp 18 18 18 18 B/P (MAP) 147/84 (105) 147/84 (105) 131/78 (95) Pulse Ox 94 94 94 95 O2 Delivery Room Air Room Air Nasal Cannula O2 Flow Rate 2.0 2.0 02/06/17 02/06/17 02/06/17 02/06/17 05:28 05:58 07:00 08:13 Temp 97.6 97.6 Pulse 86 Resp 18 18 B/P (MAP) 129/86 (100) Pulse Ox 95 95 97 97 O2 Delivery Nasal Cannula Nasal Cannula Nasal Cannula Nasal Cannula O2 Flow Rate 2.0 2.0 2.0 2.0 TRACIE LOPEZ MD Feb 06, 2017 09:04
--- NOTE | 2017-02-06 10:45 | CONS ---
DATE OF CONSULTATION: 02/06/2017 ATTENDING PHYSICIAN: Dr. Limon. The patient was seen at the request of Dr. Limon for rehab evaluation. 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 The patient with history of gouty arthritis, admitted through the Emergency Room on 02/05/2017 in the evening. While he was trying to park the semi-truck in the dark, had difficulty performing the job. He had difficulty punching the code numbers that he usually would do at work without any difficulty. It happened around 5:30 in the evening on 02/05/2017. He arrived in the Emergency Room as a code stroke by emergency medical service, but NIH scale was 1, no slurred speech or facial asymmetry. He had minimal weakness in his left upper extremity. He continued to have numbness in his left upper and lower extremities and he had severe headache. Blood pressure was high at the time of admission. The patient is a nonsmoker, occasional ethanol user, family history of hypertension. He lives with his family, had stairs to manage. The patient had CT scan of the brain done, which failed to reveal any evidence of any abnormality. Also CTA of his neck failed to reveal any significant stenosis or aneurysm. Chest x-ray was within normal limits. The patient had a good bowel movement yesterday morning. He denies any difficulty with urination. The patient had history of obstructive sleep apnea and uses BiPAP at nighttime. Last night he did not sleep that much despite using oxygen by nasal cannula. ALLERGIES: The patient is not known allergic to any medication. PHYSICAL EXAMINATION: Today revealed a middle-aged male. He is alert, oriented to time, place, person and circumstance and follows commands appropriately, moves all 4 extremities voluntarily where he had 4+/5 grade muscle strength, maybe minimal weakness in his left upper extremity, but not that much noticeable. He had slightly exaggerated left knee and ankle jerks when compared to right side. He had decreased touch and pinprick sensation over left side of his body. No obvious facial asymmetry or communication difficulties or cognitive difficulties were noted. He had diplopia with his left eye looking to the left side and also looking downwards. He felt nauseous when he came to a sitting position, so I have not examined his transfer or ambulation skills at this time. Plantar reflex is flexor bilaterally. Negative Barry and palmomental reflexes. He had good coordination using both upper extremities and lower extremities when I examined him and he is supine. He had tenderness to palpation over cervical paraspinal muscles extending over to upper trapezius muscle area, some pain on range of motion of the cervical spine. He had left olecranon bursa mild effusion and we can palpate some bone spurs in that area. He had minimal tenderness and he admits it will be difficult for him to weightbear on his left elbow while driving. ASSESSMENT: A middle-aged male with headache, neck pain, and hemianesthesia on the left side and diplopia to the left side and slight exaggeration of left knee and ankle jerks to rule out any cerebrovascular accident, also headache with cervical paraspinal and upper trapezius muscle strain. No clinical evidence of cervical radiculopathy and chronic left olecranon bursitis. The patient with history of gouty arthritis. RECOMMENDATIONS: Agree with the MRI scan of his brain, to also obtain MRI scan of his neck and to ask orthopedic consult about his chronic left olecranon bursitis. He might need surgical excision rather than just injection with steroids. Dr. Limon, I appreciate asking me to participate in the care of this interesting patient. I will be glad to follow him with you as needed for rehabilitation. TRACIE LOPEZ MD DR: RADHA/jeni JOB#: [id number] / [id number]
[2017-02-06] MEDS ORDERED: GADOBUTROL 7.5 MMOL/7.5 ML VIAL IV ONE (11:15)
--- NOTE | 2017-02-06 11:29 | RAD ---
INDICATION: Neck pain and bilateral arm weakness. TECHNIQUE: Sagittal T1, sagittal T2, sagittal STIR, axial T2, and axial T2 gradient sequences are provided. No comparison is available. FINDINGS: There is no malalignment. There is no marrow edema. There is no worrisome marrow lesion. There is no cord signal abnormality. Cervicomedullary junction is unremarkable. Degenerative findings by individual level are as follows: C2-C3: There is minimal facet hypertrophy without canal or foraminal compromise. C3-C4: Right uncinate process spurring and minimal facet hypertrophy are noted with mild right foraminal narrowing. C4-C5: There is an irregular disc osteophyte complex. Uncinate process spurring is greater on the right. There is also mild facet hypertrophy. There is mild canal stenosis, midline AP diameter of the thecal sac is 9-10 mm. There is high-grade right and mild left foraminal narrowing. C5-C6: Disc osteophyte complex and uncinate process spurring are noted. There is buckling of ligamentum flavum. There is mild canal stenosis, midline AP diameter of the thecal sac is 9 mm. There is high-grade right and at least [id number] left foraminal narrowing. C6-C7: There is left greater than right facet hypertrophy. There is no canal or foraminal compromise. C7-T1: There is facet hypertrophy without canal or foraminal compromise. IMPRESSION: Degenerative changes in the cervical spine are greatest at C4-C5 and C5-C6. Electronically signed by: Miles Will MD (02/06/2017 11:26 AM) [id number]
--- NOTE | 2017-02-06 11:50 | RAD ---
INDICATION: Headaches and weakness. Seizures. TECHNIQUE: Sagittal T1, axial T1, axial T2, axial FLAIR, axial T2 gradient, oblique coronal FLAIR, diffusion imaging with ADC map, postcontrast axial, and postcontrast coronal sequences are provided. 7.5 mL of intravenous Gadavist was administered without complication. Comparison CT head is from February 05, 2017. FINDINGS: There is mild motion degradation. There is slight asymmetry in size of the lateral ventricles with the left smaller than the right although neither is dilated. This is likely developmental variation. Parenchymal volume is within normal limits for age. There is no acute intracranial hemorrhage or extra-axial fluid collection. There is no mass effect or midline shift. There is no restricted diffusion to suggest an acute infarct. Sagittal midline structures are unremarkable. Pituitary and suprasellar region are unremarkable. Intracranial flow voids are preserved. There is minimal ethmoid mucosal thickening. Oblique coronal imaging through the temporal lobes demonstrates no evidence of mesial temporal sclerosis or temporal lobe mass. There is no evidence of heterotopia. There is no pathologic enhancement. IMPRESSION: 1. Allowing for mild motion degradation, there are no acute intracranial findings. Electronically signed by: Miles Will MD (02/06/2017 11:46 AM) [id number]
--- NOTE | 2017-02-06 11:56 | RAD ---
Indication pain. No history of injury. AP and lateral views of the left elbow were obtained. There is swelling over the olecranon in a fashion compatible with olecranon bursitis. A small spur is additionally noted off the olecranon. No acute bony finding is seen
[2017-02-06] MEDS ORDERED: oxyCODONE IR 5 MG TABLET PO PRN (12:15)
[2017-02-06] MEDS ORDERED: hydrALAZINE 20 MG/ML VIAL. IVP PRN (12:15)
--- NOTE | 2017-02-06 12:24 | PDOC ---
PROGRESS NOTES Chief Complaint Chief Complaint Neurol deficits ASSESSMENT AND PLAN: 1. neurol deficits: type not c/w CVA; MRI brain neg 2. ?peripheral neuropathy/sciatica: d/w Dr Laureano; chronic olecranon bursitis , ortho consult. OT/PT 3. HTN: at admit, now well controlled 4. Gout: not active now History of Present Illness History of Present Illness severe TREVINO Vitals Vitals Vital Signs Date Time Temp Pulse Resp B/P (MAP) Pulse Ox O2 Delivery O2 Flow Rate FiO2 02/06/17 08:43 97 Nasal Cannula 2.0 02/06/17 07:00 97.6 86 18 129/86 (100) 97.6 Physical Exam General: Alert, Oriented X3, Cooperative, No acute distress Heart: Regular rate Lungs: Clear Abdomen: Normal bowel sounds, Soft, No tenderness Extremities: No edema Skin: No rashes Labs LABS Laboratory Tests Test 02/05/17 19:35 02/05/17 19:40 02/05/17 19:45 02/05/17 19:54 Glucose (Fingerstick) 133 mg/dL (70-99) White Blood Count 12.1 x10^3/uL (4.0-11.0) Red Blood Count 4.57 x10^6/uL (4.30-5.70) Hemoglobin 14.3 g/dL (13.0-17.5) Hematocrit 41.8 % (39.0-53.0) Mean Corpuscular Volume 91 fL (79-100) Mean Corpuscular Hemoglobin 31 pg (25-35) Mean Corpuscular Hemoglobin Concent 34 g/dL (31-37) Red Cell Distribution Width 12.7 % (11.5-14.5) Platelet Count 230 x10^3/uL (140-400) Neutrophils (%) (Auto) 77 % (31-73) Lymphocytes (%) (Auto) 13 % (24-48) Monocytes (%) (Auto) 8 % (0-9) Eosinophils (%) (Auto) 1 % (0-3) Basophils (%) (Auto) 1 % (0-3) Neutrophils # (Auto) 9.3 x10^3uL (1.8-7.7) Lymphocytes # (Auto) 1.5 x10^3/uL (1.0-4.8) Monocytes # (Auto) 1.0 x10^3/uL (0.0-1.1) Eosinophils # (Auto) 0.1 x10^3/uL (0.0-0.7) Basophils # (Auto) 0.1 x10^3/uL (0.0-0.2) Prothrombin Time 12.4 SEC (11.7-14.0) 13.0 Sec (10.0-14.0) Prothromb Time International Ratio 1.0 (0.8-1.1) Activated Partial Thromboplast Time 26 SEC (24-38) Sodium Level 143 mmol/L (136-145) Potassium Level 3.7 mmol/L (3.5-5.1) Chloride Level 105 mmol/L (98-107) Carbon Dioxide Level 26 mmol/L (21-32) Anion Gap 12 (6-14) 17 mmol/L (6-14) Blood Urea Nitrogen 20 mg/dL (8-26) Creatinine 1.2 mg/dL (0.7-1.3) Estimated GFR (Cockcroft-Gault) 63.8 Glucose Level 127 mg/dL (70-99) 127 mg/dL (70-99) Calcium Level 9.5 mg/dL (8.5-10.1) Troponin I Quantitative < 0.017 ng/mL (0.000-0.055) Bedside Hemoglobin 13.3 g/dL (14-18) Bedside Hematocrit 39 % (37-52) Bedside Sodium 144 mmol/L (135-145) Bedside Potassium 3.7 mmol/L (3.5-5.0) Bedside Chloride 108 mmol/L (98-110) Bedside Total CO2 23 mmol/L (23-32) Bedside Blood Urea Nitrogen 18 mg/dL (8-26) Bedside Creatinine 1.1 mg/dL (0.5-1.4) Bedside Ionized Calcium (Rachael) 1.15 mmol/L (1.13-1.32) Bedside INR (LAB) 1.1 (0.9-1.1) Test 02/05/17 22:48 Urine Collection Type Unknown Urine Color Yellow Urine Clarity Turbid Urine pH 6.0 Urine Specific [place] >=1.030 Urine Protein Negative mg/dL (NEG-TRACE) Urine Glucose (UA) Negative mg/dL (NEG) Urine Ketones (Stick) 15 mg/dL (NEG) Urine Blood Negative (NEG) Urine Nitrite Negative (NEG) Urine Bilirubin Negative (NEG) Urine Urobilinogen Dipstick 0.2 mg/dL (0.2 mg/dL) Urine Leukocyte Esterase Negative (NEG) Urine RBC 0 /HPF (0-2) Urine WBC 5-10 /HPF (0-4) Urine Squamous Epithelial Cells Few /LPF Urine Amorphous Sediment Present /HPF Urine Bacteria 0 /HPF (0-FEW) Urine Mucus Marked /LPF Urine Opiates Screen Neg (NEG) Urine Methadone Screen Neg (NEG) Urine Barbiturates Neg (NEG) Urine Phencyclidine Screen Neg (NEG) Urine Amphetamine/Methamphetamine Neg (NEG) Urine Benzodiazepines Screen Neg (NEG) Urine Cocaine Screen Neg (NEG) Urine Cannabinoids Screen Neg (NEG) Urine Ethyl Alcohol Neg (NEG) TACHO LOZA MD Feb 06, 2017 12:24
[2017-02-06] MEDS: BUTALB/APAP/CAFEIN 50/325/40MG TABLET. PO PRN ×2 (13:15→18:53)
[2017-02-06] MEDS ORDERED: KETOROLAC 30 MG/ML INJ. IV ONE (14:45)
[2017-02-06 15:00] VITALS: BP 122/75
--- NOTE | 2017-02-06 17:16 | PDOC2 ---
CONSULT Date of Consult Date of Consult DATE: 02/06/17 TIME: 16:58 Reason for Consult Reason for Consult: Left olecranon bursae swelling. Referring Physician Referring Physician: Sridevi Identification/Chief Complaint Chief Complaint Left elbow swelling Problems: Source Source: Caregiver, Chart review, Patient History of Present Illness Reason for Visit: The patient is a 51 year old right hand dominant male who was working yesterday at [employer] and started feeling nauseous and his coworkers found him unresponsive, breathing, and appearing like he was having a seizure. He was brought to the ER via ambulance. He had left sided weakness. So far his stroke work up has been negative, he also had an EEG done earlier today that is pending. I am consulted for his left olecranon bursae swelling. The patient is resting, so most of the history is from his . She states that his left elbow tip has been swollen for years, and that it rarely bothers him except for when he bumps it on something, which has started happening more frequently since the swelling is getting larger. He has no erythema, warmth, or drainage. He has not had it drained ever. This is his first time seeking treatment for the problem. Past Medical History Rheumatologic: Gout Past Surgical History Past Surgical History: No pertinent history Family History Family History: Hypertension Social History No ALCOHOL: occassional Drugs: None Lives: with Family Current Problem List Problem List Problems Medical Problems: (1) Headache Status: Acute (2) Seizure Status: Acute Current Medications Current Medications Current Medications Aspirin (Debi Aspirin) 325 mg STK-MED ONCE .ROUTE ; Start 02/05/17 at 20:21; Stop 02/05/17 at 20:22; Status DC Fentanyl Citrate (Fentanyl 2ml Vial) 25 mcg PRN Q15MIN PRN IV PAIN GREATER THAN 3/10 Last administered on 02/05/17 20:41; Start 02/05/17 at 20:30; Stop at 21:53; Status DC Ondansetron HCl (Zofran) 4 mg 1X ONCE IV Last administered on 02/05/17 20:39 ; Start 02/05/17 at 20:45; Stop 02/05/17 at 20:46; Status DC Aspirin (Debi Aspirin) 325 mg 1X ONCE PO Last administered on 02/05/17 20:38 ; Start 02/05/17 at 20:45; Stop 02/05/17 at 20:46; Status DC Ibuprofen (Motrin) 600 mg PRN Q6HRS PRN PO INFLAMMATION; Start 02/05/17 at 21: 30 Fentanyl Citrate (Fentanyl 2ml Vial) 50 mcg PRN Q2HR PRN IV PAIN Last administered on 02/06/17 08:13; Start 02/05/17 at 21:30; Stop 02/06/17 at 12:23 ; Status DC Ondansetron HCl (Zofran) 4 mg PRN Q6HRS PRN IV NAUSEA/VOMITING Last administered on 02/06/17 14:01; Start 02/05/17 at 21:30 Aspirin (Debi Aspirin) 325 mg DAILYWBKFT PO Last administered on 02/06/17 08: 13; Start 02/06/17 at 08:00 Zolpidem Tartrate (Ambien) 2.5 mg PRN QHS PRN PO INSOMNIA; Start 02/05/17 at 21 :30 Clonidine HCl (Catapres) 0.1 mg PRN Q1HR PRN PO HYPERTENSION, SEE COMMENTS Last administered on 02/05/17 22:20; Start 02/05/17 at 21:30; Stop 02/06/17 at 12:23; Status DC Diazepam (Valium) 2 mg PRN TID PRN PO ANXIETY; Start 02/05/17 at 21:30 Iohexol (Omnipaque 350 Mg/ml) 75 ml 1X ONCE IV Last administered on 02/05/17 22:21; Start 02/05/17 at 22:00; Stop 02/05/17 at 22:01; Status DC Info (Do NOT chart on this entry -- for MONITORING) 1 each PRN DAILY PRN MC SEE COMMENTS; Start 02/05/17 at 22:00; Stop 02/07/17 at 21:59 Acetaminophen/ Butalbital/ Caffeine (Fioricet) 2 tab PRN Q6HRS PRN PO MIGRAINE HEADACHE Last administered on 02/06/17 13:15; Start 02/06/17 at 08:45 Meclizine HCl (Antivert) 12.5 mg PRN Q6HRS PRN PO DIZZINESS; Start 02/06/17 at 08:45 Gadobutrol (Gadavist) 7.5 mmol 1X ONCE IV Last administered on 02/06/17t 11:18 ; Start 02/06/17 at 11:15; Stop 02/06/17 at 11:16; Status DC Hydralazine HCl (Apresoline) 10 mg PRN Q4HRS PRN IVP ELEVATED BP, SEE COMMENTS ; Start 02/06/17 at 12:15 Oxycodone HCl (Roxicodone) 5 mg PRN Q6HRS PRN PO MODERATE TO SEVERE PAIN Last administered on 02/06/17 14:01; Start 02/06/17 at 12:15 Ketorolac Tromethamine (Toradol) 30 mg 1X ONCE IV ; Start 02/06/17 at 14:45; Stop 02/06/17 at 14:52; Status DC Active Scripts Active Reported [ibuprofen] PRN Allopurinol 300 Mg Tablet 1 Tab PO DAILY PRN Allergies Allergies: Coded Allergies: No Known Drug Allergies (Unverified , 02/05/17) ROS General: No: Chills, Night Sweats, Fatigue, Malaise, Appetite, Other Eyes: Yes Blurry vision HEENT: YES: Heacaches, Visual Changes Gastrointestinal: Yes Nausea Musculoskeletal: Yes Gait Disturbance, Yes Muscular Weakness, Yes Swelling In: (left elbow) Neurological: Yes Gait Disturbance, Yes Seizures, Yes Weakness Physical Exam Physical Exam resting MUSCULOSKELETAL: Other (left elbow with gross deformity at the olecranon bursae. no warmth or erythema. swollen effusion directly over the olecranon tip , approximately the size of a golfball) Vitals VITALS Vital Signs Date Time Temp Pulse Resp B/P (MAP) Pulse Ox O2 Delivery O2 Flow Rate FiO2 02/06/17 15:01 97 Nasal Cannula 2.0 02/06/17 15:00 97.4 79 20 122/75 (91) 97.4 Labs Labs Laboratory Tests Test 02/05/17 19:35 02/05/17 19:40 02/05/17 19:45 02/05/17 19:54 Glucose (Fingerstick) 133 mg/dL (70-99) White Blood Count 12.1 x10^3/uL (4.0-11.0) Red Blood Count 4.57 x10^6/uL (4.30-5.70) Hemoglobin 14.3 g/dL (13.0-17.5) Hematocrit 41.8 % (39.0-53.0) Mean Corpuscular Volume 91 fL (79-100) Mean Corpuscular Hemoglobin 31 pg (25-35) Mean Corpuscular Hemoglobin Concent 34 g/dL (31-37) Red Cell Distribution Width 12.7 % (11.5-14.5) Platelet Count 230 x10^3/uL (140-400) Neutrophils (%) (Auto) 77 % (31-73) Lymphocytes (%) (Auto) 13 % (24-48) Monocytes (%) (Auto) 8 % (0-9) Eosinophils (%) (Auto) 1 % (0-3) Basophils (%) (Auto) 1 % (0-3) Neutrophils # (Auto) 9.3 x10^3uL (1.8-7.7) Lymphocytes # (Auto) 1.5 x10^3/uL (1.0-4.8) Monocytes # (Auto) 1.0 x10^3/uL (0.0-1.1) Eosinophils # (Auto) 0.1 x10^3/uL (0.0-0.7) Basophils # (Auto) 0.1 x10^3/uL (0.0-0.2) Prothrombin Time 12.4 SEC (11.7-14.0) 13.0 Sec (10.0-14.0) Prothromb Time International Ratio 1.0 (0.8-1.1) Activated Partial Thromboplast Time 26 SEC (24-38) Sodium Level 143 mmol/L (136-145) Potassium Level 3.7 mmol/L (3.5-5.1) Chloride Level 105 mmol/L (98-107) Carbon Dioxide Level 26 mmol/L (21-32) Anion Gap 12 (6-14) 17 mmol/L (6-14) Blood Urea Nitrogen 20 mg/dL (8-26) Creatinine 1.2 mg/dL (0.7-1.3) Estimated GFR (Cockcroft-Gault) 63.8 Glucose Level 127 mg/dL (70-99) 127 mg/dL (70-99) Calcium Level 9.5 mg/dL (8.5-10.1) Troponin I Quantitative < 0.017 ng/mL (0.000-0.055) Bedside Hemoglobin 13.3 g/dL (14-18) Bedside Hematocrit 39 % (37-52) Bedside Sodium 144 mmol/L (135-145) Bedside Potassium 3.7 mmol/L (3.5-5.0) Bedside Chloride 108 mmol/L (98-110) Bedside Total CO2 23 mmol/L (23-32) Bedside Blood Urea Nitrogen 18 mg/dL (8-26) Bedside Creatinine 1.1 mg/dL (0.5-1.4) Bedside Ionized Calcium (Rachael) 1.15 mmol/L (1.13-1.32) Bedside INR (LAB) 1.1 (0.9-1.1) Test 02/05/17 22:48 Urine Collection Type Unknown Urine Color Yellow Urine Clarity Turbid Urine pH 6.0 Urine Specific [place] >=1.030 Urine Protein Negative mg/dL (NEG-TRACE) Urine Glucose (UA) Negative mg/dL (NEG) Urine Ketones (Stick) 15 mg/dL (NEG) Urine Blood Negative (NEG) Urine Nitrite Negative (NEG) Urine Bilirubin Negative (NEG) Urine Urobilinogen Dipstick 0.2 mg/dL (0.2 mg/dL) Urine Leukocyte Esterase Negative (NEG) Urine RBC 0 /HPF (0-2) Urine WBC 5-10 /HPF (0-4) Urine Squamous Epithelial Cells Few /LPF Urine Amorphous Sediment Present /HPF Urine Bacteria 0 /HPF (0-FEW) Urine Mucus Marked /LPF Urine Opiates Screen Neg (NEG) Urine Methadone Screen Neg (NEG) Urine Barbiturates Neg (NEG) Urine Phencyclidine Screen Neg (NEG) Urine Amphetamine/Methamphetamine Neg (NEG) Urine Benzodiazepines Screen Neg (NEG) Urine Cocaine Screen Neg (NEG) Urine Cannabinoids Screen Neg (NEG) Urine Ethyl Alcohol Neg (NEG) Laboratory Tests Test 02/05/17 19:35 02/05/17 19:40 02/05/17 19:45 02/05/17 19:54 Glucose (Fingerstick) 133 mg/dL (70-99) White Blood Count 12.1 x10^3/uL (4.0-11.0) Red Blood Count 4.57 x10^6/uL (4.30-5.70) Hemoglobin 14.3 g/dL (13.0-17.5) Hematocrit 41.8 % (39.0-53.0) Mean Corpuscular Volume 91 fL (79-100) Mean Corpuscular Hemoglobin 31 pg (25-35) Mean Corpuscular Hemoglobin Concent 34 g/dL (31-37) Red Cell Distribution Width 12.7 % (11.5-14.5) Platelet Count 230 x10^3/uL (140-400) Neutrophils (%) (Auto) 77 % (31-73) Lymphocytes (%) (Auto) 13 % (24-48) Monocytes (%) (Auto) 8 % (0-9) Eosinophils (%) (Auto) 1 % (0-3) Basophils (%) (Auto) 1 % (0-3) Neutrophils # (Auto) 9.3 x10^3uL (1.8-7.7) Lymphocytes # (Auto) 1.5 x10^3/uL (1.0-4.8) Monocytes # (Auto) 1.0 x10^3/uL (0.0-1.1) Eosinophils # (Auto) 0.1 x10^3/uL (0.0-0.7) Basophils # (Auto) 0.1 x10^3/uL (0.0-0.2) Prothrombin Time 12.4 SEC (11.7-14.0) 13.0 Sec (10.0-14.0) Prothromb Time International Ratio 1.0 (0.8-1.1) Activated Partial Thromboplast Time 26 SEC (24-38) Sodium Level 143 mmol/L (136-145) Potassium Level 3.7 mmol/L (3.5-5.1) Chloride Level 105 mmol/L (98-107) Carbon Dioxide Level 26 mmol/L (21-32) Anion Gap 12 (6-14) 17 mmol/L (6-14) Blood Urea Nitrogen 20 mg/dL (8-26) Creatinine 1.2 mg/dL (0.7-1.3) Estimated GFR (Cockcroft-Gault) 63.8 Glucose Level 127 mg/dL (70-99) 127 mg/dL (70-99) Calcium Level 9.5 mg/dL (8.5-10.1) Troponin I Quantitative < 0.017 ng/mL (0.000-0.055) Bedside Hemoglobin 13.3 g/dL (14-18) Bedside Hematocrit 39 % (37-52) Bedside Sodium 144 mmol/L (135-145) Bedside Potassium 3.7 mmol/L (3.5-5.0) Bedside Chloride 108 mmol/L (98-110) Bedside Total CO2 23 mmol/L (23-32) Bedside Blood Urea Nitrogen 18 mg/dL (8-26) Bedside Creatinine 1.1 mg/dL (0.5-1.4) Bedside Ionized Calcium (Rachael) 1.15 mmol/L (1.13-1.32) Bedside INR (LAB) 1.1 (0.9-1.1) Test 02/05/17 22:48 Urine Collection Type Unknown Urine Color Yellow Urine Clarity Turbid Urine pH 6.0 Urine Specific [place] >=1.030 Urine Protein Negative mg/dL (NEG-TRACE) Urine Glucose (UA) Negative mg/dL (NEG) Urine Ketones (Stick) 15 mg/dL (NEG) Urine Blood Negative (NEG) Urine Nitrite Negative (NEG) Urine Bilirubin Negative (NEG) Urine Urobilinogen Dipstick 0.2 mg/dL (0.2 mg/dL) Urine Leukocyte Esterase Negative (NEG) Urine RBC 0 /HPF (0-2) Urine WBC 5-10 /HPF (0-4) Urine Squamous Epithelial Cells Few /LPF Urine Amorphous Sediment Present /HPF Urine Bacteria 0 /HPF (0-FEW) Urine Mucus Marked /LPF Urine Opiates Screen Neg (NEG) Urine Methadone Screen Neg (NEG) Urine Barbiturates Neg (NEG) Urine Phencyclidine Screen Neg (NEG) Urine Amphetamine/Methamphetamine Neg (NEG) Urine Benzodiazepines Screen Neg (NEG) Urine Cocaine Screen Neg (NEG) Urine Cannabinoids Screen Neg (NEG) Urine Ethyl Alcohol Neg (NEG) Images Images 3 views of the left elbow reveal some degenerative changes, minimal osteophyte formation, calcifications in the olecranon bursae. no subcutaneous air. Assessment/Plan Assessment/Plan The patient is a 51 year old right hand dominant male who presents with seizure like activity and left sided weakness. -I am consulted for his left olecranon bursae swelling. The patient does have a history of gout. There are some calcifications on the xray, so this could be gouty nodules versus regular olecranon bursitis. I discussed with the options including, doing nothing, wearing an elbow pad , drainage, and possible surgical excision of the olecranon bursae. This could all be established as an outpatient. I will return at a later time to discuss the options with the patient. HENRI THORNTON MD Feb 06, 2017 17:16
--- NOTE | 2017-02-06 18:05 | PDOC2 ---
NEUROLOGY CONSULT Date of Admission Date of Admission DATE: 02/06/17 TIME: 17:46 Reason for Consult Reason for Consult: IMPRESSION: Seizure or seizure like episode x 1. Syncope? Worsening of chronic headaches. Left side numbness and tingling. UTI Gout. 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 No evidence of acute CVA this time. RECOMMENDATIONS/PLAN: EEG Topamax 25 mg bid for headaches, increase 25 mg q week until 100 mg bid. ASA 325 mg daily. Lab: see orders. Avoid driving x 6 months. Patient education for seizure precautions. Discussed with his on 02/06/17. Brain MRI w/wo contrast plus seizure protocol: negative. HISTORY OF THE PRESENT ILLNESS: 51-y-old male patient with above medical disease and chronic headaches for many years and has been taken ASA and other OTC frequently for his headaches. He had increased headaches on 02/05/17 and took ASA as usual. He then had an episode of seizure vs syncope while sitting in the truck. He felt warm, nausea, left side face and left UE and lE numbness and tingling, then lost consciousness and had some shaking movements for a brief period of time per his co-worker. He was therefore, brought to the ER of [facility] for further evaluation. HIs HCT and CTA were negative in the ER. His symptoms largely resolved in the ER except mild numbness in his left side of the face. Past Medical History Rheumatologic: Gout Past Surgical History No pertinent history Family History Hypertension Social History Smoke: No ALCOHOL: occasionally Drugs: None ALLERGY: NKDA MEDICATIONS: Refer to MAR REVIEW OF SYSTEMS: Constitutional: No malnutrition, weight loss, cachexia. Head: No recent traumatic brain or head injury. Skin: No edema, or rash. Ear: No infection. Eyes: No vision loss or color blindness. Nose: No bleeding or purulent discharges. Hearing: No hearing decrease. Neck: No recent injury. Cardiac: No CO, arrhythmia, Pulmonary: No pneumonia. GI: No GI ulcer, GI bleeding. Urinary/genital: No dysuria, incontinence, urinary retention. Endocrinologic: No cousin face, craniofacial dysmorphism, polydactyly. Skeletomuscular: No muscular atrophy, deformity. Neurological: see HP. Psychiatric: Denies drug use/abuse. Otherwise, not [id number] review of systems. PHYSICAL EXAMINATION: General appearance is in mild anxious. HEENT: Normocephalic and nontraumatic. Eyes, nose, ears, and throat are unremarkable. Neck is supple. No lymphadenopathy. No bruits are heard over the carotid artery. No crepitus. Cardiovascular: S1, S2, regular rate and rhythm. Pulmonary: Clear to auscultation bilaterally. Abdomen: Bowel sounds are positive. Abdomen is soft, nontender, and nondistended. Extremities: No rash, lesions, or edema. No restriction of range of motion NEUROLOGICAL EXAMINATION: Alert Oriented to time, place and person. PERRL. EOMI. CN: no focal findings. Muscle tone: within normal. Muscle strength: 5 DTR: 2 Plantar reflex: Flexor response bilaterally Gait: At baseline normal. Sensory exam: no abnormal findings. No cerebellar signs elicited. F-T-N test accurate. Current Medications Current Medications Current Medications Aspirin (Alverix Aspirin) 325 mg STK-MED ONCE .ROUTE ; Start 02/05/17 at 20:21; Stop 02/05/17 at 20:22; Status DC Fentanyl Citrate (Fentanyl 2ml Vial) 25 mcg PRN Q15MIN PRN IV PAIN GREATER THAN 3/10 Last administered on 02/05/17 20:41; Start 02/05/17 at 20:30; Stop at 21:53; Status DC Ondansetron HCl (Zofran) 4 mg 1X ONCE IV Last administered on 02/05/17 20:39 ; Start 02/05/17 at 20:45; Stop 02/05/17 at 20:46; Status DC Aspirin (Alverix Aspirin) 325 mg 1X ONCE PO Last administered on 02/05/17 20:38 ; Start 02/05/17 at 20:45; Stop 02/05/17 at 20:46; Status DC Ibuprofen (Motrin) 600 mg PRN Q6HRS PRN PO INFLAMMATION; Start 02/05/17 at 21: 30 Fentanyl Citrate (Fentanyl 2ml Vial) 50 mcg PRN Q2HR PRN IV PAIN Last administered on 02/06/17 08:13; Start 02/05/17 at 21:30; Stop 02/06/17 at 12:23 ; Status DC Ondansetron HCl (Zofran) 4 mg PRN Q6HRS PRN IV NAUSEA/VOMITING Last administered on 02/06/17 14:01; Start 02/05/17 at 21:30 Aspirin (Debi Aspirin) 325 mg DAILYWBKFT PO Last administered on 02/06/17 08: 13; Start 02/06/17 at 08:00 Zolpidem Tartrate (Ambien) 2.5 mg PRN QHS PRN PO INSOMNIA; Start 02/05/17 at 21 :30 Clonidine HCl (Catapres) 0.1 mg PRN Q1HR PRN PO HYPERTENSION, SEE COMMENTS Last administered on 02/05/17 22:20; Start 02/05/17 at 21:30; Stop 02/06/17 at 12:23; Status DC Diazepam (Valium) 2 mg PRN TID PRN PO ANXIETY; Start 02/05/17 at 21:30 Iohexol (Omnipaque 350 Mg/ml) 75 ml 1X ONCE IV Last administered on 02/05/17 22:21; Start 02/05/17 at 22:00; Stop 02/05/17 at 22:01; Status DC Info (Do NOT chart on this entry -- for MONITORING) 1 each PRN DAILY PRN MC SEE COMMENTS; Start 02/05/17 at 22:00; Stop 02/07/17 at 21:59 Acetaminophen/ Butalbital/ Caffeine (Fioricet) 2 tab PRN Q6HRS PRN PO MIGRAINE HEADACHE Last administered on 02/06/17 13:15; Start 02/06/17 at 08:45 Meclizine HCl (Antivert) 12.5 mg PRN Q6HRS PRN PO DIZZINESS; Start 02/06/17 at 08:45 Gadobutrol (Gadavist) 7.5 mmol 1X ONCE IV Last administered on 02/06/17 11:18 ; Start 02/06/17 at 11:15; Stop 02/06/17 at 11:16; Status DC Hydralazine HCl (Apresoline) 10 mg PRN Q4HRS PRN IVP ELEVATED BP, SEE COMMENTS ; Start 02/06/17 at 12:15 Oxycodone HCl (Roxicodone) 5 mg PRN Q6HRS PRN PO MODERATE TO SEVERE PAIN Last administered on 02/06/17 14:01; Start 02/06/17 at 12:15 Ketorolac Tromethamine (Toradol) 30 mg 1X ONCE IV ; Start 02/06/17 at 14:45; Stop 02/06/17 at 14:52; Status DC Active Scripts Active Reported [ibuprofen] PRN Allopurinol 300 Mg Tablet 1 Tab PO DAILY PRN Allergies Allergies: Coded Allergies: No Known Drug Allergies (Unverified , 02/05/17) Vitals VITALS Vital Signs Date Time Temp Pulse Resp B/P (MAP) Pulse Ox O2 Delivery O2 Flow Rate FiO2 02/06/17 15:01 97 Nasal Cannula 2.0 02/06/17 15:00 97.4 79 20 122/75 (91) 97.4 Labs Labs Laboratory Tests Test 02/05/17 19:35 02/05/17 19:40 02/05/17 19:45 02/05/17 19:54 Glucose (Fingerstick) 133 mg/dL (70-99) White Blood Count 12.1 x10^3/uL (4.0-11.0) Red Blood Count 4.57 x10^6/uL (4.30-5.70) Hemoglobin 14.3 g/dL (13.0-17.5) Hematocrit 41.8 % (39.0-53.0) Mean Corpuscular Volume 91 fL (79-100) Mean Corpuscular Hemoglobin 31 pg (25-35) Mean Corpuscular Hemoglobin Concent 34 g/dL (31-37) Red Cell Distribution Width 12.7 % (11.5-14.5) Platelet Count 230 x10^3/uL (140-400) Neutrophils (%) (Auto) 77 % (31-73) Lymphocytes (%) (Auto) 13 % (24-48) Monocytes (%) (Auto) 8 % (0-9) Eosinophils (%) (Auto) 1 % (0-3) Basophils (%) (Auto) 1 % (0-3) Neutrophils # (Auto) 9.3 x10^3uL (1.8-7.7) Lymphocytes # (Auto) 1.5 x10^3/uL (1.0-4.8) Monocytes # (Auto) 1.0 x10^3/uL (0.0-1.1) Eosinophils # (Auto) 0.1 x10^3/uL (0.0-0.7) Basophils # (Auto) 0.1 x10^3/uL (0.0-0.2) Prothrombin Time 12.4 SEC (11.7-14.0) 13.0 Sec (10.0-14.0) Prothromb Time International Ratio 1.0 (0.8-1.1) Activated Partial Thromboplast Time 26 SEC (24-38) Sodium Level 143 mmol/L (136-145) Potassium Level 3.7 mmol/L (3.5-5.1) Chloride Level 105 mmol/L (98-107) Carbon Dioxide Level 26 mmol/L (21-32) Anion Gap 12 (6-14) 17 mmol/L (6-14) Blood Urea Nitrogen 20 mg/dL (8-26) Creatinine 1.2 mg/dL (0.7-1.3) Estimated GFR (Cockcroft-Gault) 63.8 Glucose Level 127 mg/dL (70-99) 127 mg/dL (70-99) Calcium Level 9.5 mg/dL (8.5-10.1) Troponin I Quantitative < 0.017 ng/mL (0.000-0.055) Bedside Hemoglobin 13.3 g/dL (14-18) Bedside Hematocrit 39 % (37-52) Bedside Sodium 144 mmol/L (135-145) Bedside Potassium 3.7 mmol/L (3.5-5.0) Bedside Chloride 108 mmol/L (98-110) Bedside Total CO2 23 mmol/L (23-32) Bedside Blood Urea Nitrogen 18 mg/dL (8-26) Bedside Creatinine 1.1 mg/dL (0.5-1.4) Bedside Ionized Calcium (Rachael) 1.15 mmol/L (1.13-1.32) Bedside INR (LAB) 1.1 (0.9-1.1) Test 02/05/17 22:48 Urine Collection Type Unknown Urine Color Yellow Urine Clarity Turbid Urine pH 6.0 Urine Specific [place] >=1.030 Urine Protein Negative mg/dL (NEG-TRACE) Urine Glucose (UA) Negative mg/dL (NEG) Urine Ketones (Stick) 15 mg/dL (NEG) Urine Blood Negative (NEG) Urine Nitrite Negative (NEG) Urine Bilirubin Negative (NEG) Urine Urobilinogen Dipstick 0.2 mg/dL (0.2 mg/dL) Urine Leukocyte Esterase Negative (NEG) Urine RBC 0 /HPF (0-2) Urine WBC 5-10 /HPF (0-4) Urine Squamous Epithelial Cells Few /LPF Urine Amorphous Sediment Present /HPF Urine Bacteria 0 /HPF (0-FEW) Urine Mucus Marked /LPF Urine Opiates Screen Neg (NEG) Urine Methadone Screen Neg (NEG) Urine Barbiturates Neg (NEG) Urine Phencyclidine Screen Neg (NEG) Urine Amphetamine/Methamphetamine Neg (NEG) Urine Benzodiazepines Screen Neg (NEG) Urine Cocaine Screen Neg (NEG) Urine Cannabinoids Screen Neg (NEG) Urine Ethyl Alcohol Neg (NEG) Laboratory Tests Test 02/05/17 19:35 02/05/17 19:40 02/05/17 19:45 02/05/17 19:54 Glucose (Fingerstick) 133 mg/dL (70-99) White Blood Count 12.1 x10^3/uL (4.0-11.0) Red Blood Count 4.57 x10^6/uL (4.30-5.70) Hemoglobin 14.3 g/dL (13.0-17.5) Hematocrit 41.8 % (39.0-53.0) Mean Corpuscular Volume 91 fL (79-100) Mean Corpuscular Hemoglobin 31 pg (25-35) Mean Corpuscular Hemoglobin Concent 34 g/dL (31-37) Red Cell Distribution Width 12.7 % (11.5-14.5) Platelet Count 230 x10^3/uL (140-400) Neutrophils (%) (Auto) 77 % (31-73) Lymphocytes (%) (Auto) 13 % (24-48) Monocytes (%) (Auto) 8 % (0-9) Eosinophils (%) (Auto) 1 % (0-3) Basophils (%) (Auto) 1 % (0-3) Neutrophils # (Auto) 9.3 x10^3uL (1.8-7.7) Lymphocytes # (Auto) 1.5 x10^3/uL (1.0-4.8) Monocytes # (Auto) 1.0 x10^3/uL (0.0-1.1) Eosinophils # (Auto) 0.1 x10^3/uL (0.0-0.7) Basophils # (Auto) 0.1 x10^3/uL (0.0-0.2) Prothrombin Time 12.4 SEC (11.7-14.0) 13.0 Sec (10.0-14.0) Prothromb Time International Ratio 1.0 (0.8-1.1) Activated Partial Thromboplast Time 26 SEC (24-38) Sodium Level 143 mmol/L (136-145) Potassium Level 3.7 mmol/L (3.5-5.1) Chloride Level 105 mmol/L (98-107) Carbon Dioxide Level 26 mmol/L (21-32) Anion Gap 12 (6-14) 17 mmol/L (6-14) Blood Urea Nitrogen 20 mg/dL (8-26) Creatinine 1.2 mg/dL (0.7-1.3) Estimated GFR (Cockcroft-Gault) 63.8 Glucose Level 127 mg/dL (70-99) 127 mg/dL (70-99) Calcium Level 9.5 mg/dL (8.5-10.1) Troponin I Quantitative < 0.017 ng/mL (0.000-0.055) Bedside Hemoglobin 13.3 g/dL (14-18) Bedside Hematocrit 39 % (37-52) Bedside Sodium 144 mmol/L (135-145) Bedside Potassium 3.7 mmol/L (3.5-5.0) Bedside Chloride 108 mmol/L (98-110) Bedside Total CO2 23 mmol/L (23-32) Bedside Blood Urea Nitrogen 18 mg/dL (8-26) Bedside Creatinine 1.1 mg/dL (0.5-1.4) Bedside Ionized Calcium (Rachael) 1.15 mmol/L (1.13-1.32) Bedside INR (LAB) 1.1 (0.9-1.1) Test 02/05/17 22:48 Urine Collection Type Unknown Urine Color Yellow Urine Clarity Turbid Urine pH 6.0 Urine Specific [place] >=1.030 Urine Protein Negative mg/dL (NEG-TRACE) Urine Glucose (UA) Negative mg/dL (NEG) Urine Ketones (Stick) 15 mg/dL (NEG) Urine Blood Negative (NEG) Urine Nitrite Negative (NEG) Urine Bilirubin Negative (NEG) Urine Urobilinogen Dipstick 0.2 mg/dL (0.2 mg/dL) Urine Leukocyte Esterase Negative (NEG) Urine RBC 0 /HPF (0-2) Urine WBC 5-10 /HPF (0-4) Urine Squamous Epithelial Cells Few /LPF Urine Amorphous Sediment Present /HPF Urine Bacteria 0 /HPF (0-FEW) Urine Mucus Marked /LPF Urine Opiates Screen Neg (NEG) Urine Methadone Screen Neg (NEG) Urine Barbiturates Neg (NEG) Urine Phencyclidine Screen Neg (NEG) Urine Amphetamine/Methamphetamine Neg (NEG) Urine Benzodiazepines Screen Neg (NEG) Urine Cocaine Screen Neg (NEG) Urine Cannabinoids Screen Neg (NEG) Urine Ethyl Alcohol Neg (NEG) LAUREN EPSTEIN MD Feb 06, 2017 18:05
--- NOTE | 2017-02-06 19:20 | EEG ---
DATE OF SERVICE: 02/06/2017 EEG NUMBER: [id number]. OBJECTIVE: This is a 51-year-old male patient with history of seizure or seizure-like episodes on 02/05/2017. EEG was requested to evaluate seizure activity. METHODS: Twenty electrodes were applied according to the international 10-20 electrode placement system. EKG monitoring, hyperventilation, intermittent photic stimulation, monopolar and bipolar montages are routinely utilized. The record was obtained on a digital system with video monitoring. MEDICATIONS: No anti-seizure medication. FINDINGS: 1. Background: The patient was recorded in the awake and drowsy states. No actual sleep state was recorded. The overall background amplitude is 10-30 microvolts. A posterior dominant rhythm of 8-10 Hz is observed. 2. Abnormalities: No specific epileptiform discharge or electrographic seizure is seen. No focal or diffuse slowing. 3. Activation: Hyperventilation was performed with poor efforts. Intermittent photic stimulation was performed with photic driving. No specific epileptiform discharge or electrographic seizure induced by hyperventilation or intermittent photic stimulation. IMPRESSION: This EEG is a normal study for the awake and drowsy states. No actual sleep state was recorded. No focal, lateralizing, specific epileptiform discharge, or electrographic seizure is seen; however, a normal EEG does not rule out seizure. If patient has further seizure or seizure-like episodes, suggest repeat EEG. LAUREN EPSTEIN MD DR: TORRES/jeni JOB#: [id number] / [id number] DONALDO
[2017-02-06 19:44] VITALS: BP 112/64
[2017-02-06] MEDS: TOPIRAMATE 25 MG TABLET. PO SCH (21:25)
[2017-02-06 23:45] VITALS: BP 111/60
[2017-02-07 03:00] VITALS: BP 130/76
[2017-02-07] MEDS: BUTALB/APAP/CAFEIN 50/325/40MG TABLET. PO PRN ×2 (03:17→08:54)
--- NOTE | 2017-02-07 04:22 | ACF ---
Admission Forms Criteria SEIZURE ( Place 'X' for any and all applicable criteria): Admission is indicated for seizure and 1 or more of the following (1)(2)(3)(4)( 5)(6) [X]I. Inpatient admission required rather than observation care (Also use Seizure: Observation Care Criteria as appropriate) because of 1 or more of the following: [ ]1) Altered mental status that is severe or persistent [X]2) New focal neurologic deficit that is severe or persistent [ ]3) Metabolic disorder (eg, hypoglycemia, hyponatremia) that is severe or persistent [ ]4) Recurrent seizure [ ]5) Outpatient antiseizure regimen cannot be established (eg , patient cannot tolerate medication, initiation requires inpatient care) [ ]6) Need for ongoing intravenous infusion of anti-seizure medication [ ]7) Cerebral bleeding, hydrocephalus, or vasospasm monitoring [ ]8) Increased intracranial pressure or cerebral edema monitoring [ ]9) Other conditions, treatment or monitoring requiring inpatient admission [ ]II. Status epilepticus [A] or repetitive seizures not controlled with emergent treatment (6)(8) [ ]III. Brain disorder (eg, tumor, edema, and hydrocephalus) that requiring monitoring or intervention available only at inpatient level of care. [ ]IV. Brain insult (eg, severe trauma, stroke, drug toxicity, or withdrawal) that requires monitoring or intervention available only at inpatient level of care (10)(11) [ ]V. Cardiac arrhythmias of immediate concern Extended stay beyond goal length of stay may be needed for (22) [ ]a) Complications of status epilepticus [ ]b) Refractory status epilepticus [ ]c) Etiology-specific therapy for conditions such as [employer] infection, head injury,eclampsia, severe metabolic abnormalities, and brain tumor [ ]d) Residual neurologic damage, [ ]e) Initiation of significant change to anticonvulsant treatment [ ]f) Older patients (65 years or older) [ ]g) Patient requiring intubation (eg, to protect airway) The original [employer] content created by [employer] has been revised. The portions of the content which have been revised are identified through the use of italic text, and [facility] has neither reviewed nor approved the modified material. All other unmodified content is copyright [facility]. Please see references footnoted in the original [facility] edition 2015 Admission Criteria Met?: Yes ACHARJEE,IMER Feb 07, 2017 04:22
[2017-02-07 07:10] VITALS: BP 135/82
[2017-02-07] MEDS: ASPIRIN 325 MG TABLET PO SCH (08:54)
[2017-02-07] MEDS: TOPIRAMATE 25 MG TABLET. PO SCH (08:54)
--- NOTE | 2017-02-07 09:58 | PDOC ---
PROGRESS NOTES Subjective Subjective He feels better. Objective Objective Vital Signs Date Time Temp Pulse Resp B/P (MAP) Pulse Ox O2 Delivery O2 Flow Rate FiO2 02/07/17 07:10 98.7 76 16 135/82 (99) 98 Nasal Cannula 2.0 98.7 Physical Exam Physical Exam He is alert and comfortable and continues with tenderness to palpation over right cervical paraspinal and posterior shoulder girdle muscles but he is independent with his mobility and self care and can walk on his tip toes,heels and on a straight line one foot in front of the other.No more diplopia or numbness in his extremities. Assessment Assessment Problems Medical Problems: (1) Headache Status: Acute (2) Seizure Status: Acute Plan Plan of Prison with out patient follow up and I have instructed him in home exercises and suggested physical therapy but he would like to wait.He may benefit from NSAIDs if no contraindications. Comment Review of Relevant I have reviewed the following items anders (where applicable) has been applied. Labs Laboratory Tests Test 02/05/17 19:35 02/05/17 19:40 02/05/17 19:45 02/05/17 19:54 Glucose (Fingerstick) 133 mg/dL (70-99) White Blood Count 12.1 x10^3/uL (4.0-11.0) Red Blood Count 4.57 x10^6/uL (4.30-5.70) Hemoglobin 14.3 g/dL (13.0-17.5) Hematocrit 41.8 % (39.0-53.0) Mean Corpuscular Volume 91 fL (79-100) Mean Corpuscular Hemoglobin 31 pg (25-35) Mean Corpuscular Hemoglobin Concent 34 g/dL (31-37) Red Cell Distribution Width 12.7 % (11.5-14.5) Platelet Count 230 x10^3/uL (140-400) Neutrophils (%) (Auto) 77 % (31-73) Lymphocytes (%) (Auto) 13 % (24-48) Monocytes (%) (Auto) 8 % (0-9) Eosinophils (%) (Auto) 1 % (0-3) Basophils (%) (Auto) 1 % (0-3) Neutrophils # (Auto) 9.3 x10^3uL (1.8-7.7) Lymphocytes # (Auto) 1.5 x10^3/uL (1.0-4.8) Monocytes # (Auto) 1.0 x10^3/uL (0.0-1.1) Eosinophils # (Auto) 0.1 x10^3/uL (0.0-0.7) Basophils # (Auto) 0.1 x10^3/uL (0.0-0.2) Prothrombin Time 12.4 SEC (11.7-14.0) 13.0 Sec (10.0-14.0) Prothromb Time International Ratio 1.0 (0.8-1.1) Activated Partial Thromboplast Time 26 SEC (24-38) Sodium Level 143 mmol/L (136-145) Potassium Level 3.7 mmol/L (3.5-5.1) Chloride Level 105 mmol/L (98-107) Carbon Dioxide Level 26 mmol/L (21-32) Anion Gap 12 (6-14) 17 mmol/L (6-14) Blood Urea Nitrogen 20 mg/dL (8-26) Creatinine 1.2 mg/dL (0.7-1.3) Estimated GFR (Cockcroft-Gault) 63.8 Glucose Level 127 mg/dL (70-99) 127 mg/dL (70-99) Calcium Level 9.5 mg/dL (8.5-10.1) Troponin I Quantitative < 0.017 ng/mL (0.000-0.055) Bedside Hemoglobin 13.3 g/dL (14-18) Bedside Hematocrit 39 % (37-52) Bedside Sodium 144 mmol/L (135-145) Bedside Potassium 3.7 mmol/L (3.5-5.0) Bedside Chloride 108 mmol/L (98-110) Bedside Total CO2 23 mmol/L (23-32) Bedside Blood Urea Nitrogen 18 mg/dL (8-26) Bedside Creatinine 1.1 mg/dL (0.5-1.4) Bedside Ionized Calcium (Rachael) 1.15 mmol/L (1.13-1.32) Bedside INR (LAB) 1.1 (0.9-1.1) Test 02/05/17 22:48 Urine Collection Type Unknown Urine Color Yellow Urine Clarity Turbid Urine pH 6.0 Urine Specific [place] >=1.030 Urine Protein Negative mg/dL (NEG-TRACE) Urine Glucose (UA) Negative mg/dL (NEG) Urine Ketones (Stick) 15 mg/dL (NEG) Urine Blood Negative (NEG) Urine Nitrite Negative (NEG) Urine Bilirubin Negative (NEG) Urine Urobilinogen Dipstick 0.2 mg/dL (0.2 mg/dL) Urine Leukocyte Esterase Negative (NEG) Urine RBC 0 /HPF (0-2) Urine WBC 5-10 /HPF (0-4) Urine Squamous Epithelial Cells Few /LPF Urine Amorphous Sediment Present /HPF Urine Bacteria 0 /HPF (0-FEW) Urine Mucus Marked /LPF Urine Opiates Screen Neg (NEG) Urine Methadone Screen Neg (NEG) Urine Barbiturates Neg (NEG) Urine Phencyclidine Screen Neg (NEG) Urine Amphetamine/Methamphetamine Neg (NEG) Urine Benzodiazepines Screen Neg (NEG) Urine Cocaine Screen Neg (NEG) Urine Cannabinoids Screen Neg (NEG) Urine Ethyl Alcohol Neg (NEG) Medications Current Medications Aspirin (Debi Aspirin) 325 mg STK-MED ONCE .ROUTE ; Start 02/05/17 at 20:21; Stop 02/05/17 at 20:22; Status DC Fentanyl Citrate (Fentanyl 2ml Vial) 25 mcg PRN Q15MIN PRN IV PAIN GREATER THAN 3/10 Last administered on 02/05/17 20:41; Start 02/05/17 at 20:30; Stop at 21:53; Status DC Ondansetron HCl (Zofran) 4 mg 1X ONCE IV Last administered on 02/05/17 20:39 ; Start 02/05/17 at 20:45; Stop 02/05/17 at 20:46; Status DC Aspirin (GBS Aspirin) 325 mg 1X ONCE PO Last administered on 02/05/17 20:38 ; Start 02/05/17 at 20:45; Stop 02/05/17 at 20:46; Status DC Ibuprofen (Motrin) 600 mg PRN Q6HRS PRN PO INFLAMMATION; Start 02/05/17 at 21: 30 Fentanyl Citrate (Fentanyl 2ml Vial) 50 mcg PRN Q2HR PRN IV PAIN Last administered on 02/06/17 08:13; Start 02/05/17 at 21:30; Stop 02/06/17 at 12:23 ; Status DC Ondansetron HCl (Zofran) 4 mg PRN Q6HRS PRN IV NAUSEA/VOMITING Last administered on 02/06/17 14:01; Start 02/05/17 at 21:30 Aspirin (Debi Aspirin) 325 mg DAILYWBKFT PO Last administered on 02/07/17 08: 54; Start 02/06/17 at 08:00 Zolpidem Tartrate (Ambien) 2.5 mg PRN QHS PRN PO INSOMNIA; Start 02/05/17 at 21 :30 Clonidine HCl (Catapres) 0.1 mg PRN Q1HR PRN PO HYPERTENSION, SEE COMMENTS Last administered on 02/05/17 22:20; Start 02/05/17 at 21:30; Stop 02/06/17 at 12:23; Status DC Diazepam (Valium) 2 mg PRN TID PRN PO ANXIETY; Start 02/05/17 at 21:30 Iohexol (Omnipaque 350 Mg/ml) 75 ml 1X ONCE IV Last administered on 02/05/17 22:21; Start 02/05/17 at 22:00; Stop 02/05/17 at 22:01; Status DC Info (Do NOT chart on this entry -- for MONITORING) 1 each PRN DAILY PRN MC SEE COMMENTS; Start 02/05/17 at 22:00; Stop 02/07/17 at 21:59 Acetaminophen/ Butalbital/ Caffeine (Fioricet) 2 tab PRN Q6HRS PRN PO MIGRAINE HEADACHE Last administered on 02/07/17 08:54; Start 02/06/17 at 08:45 Meclizine HCl (Antivert) 12.5 mg PRN Q6HRS PRN PO DIZZINESS; Start 02/06/17 at 08:45 Gadobutrol (Gadavist) 7.5 mmol 1X ONCE IV Last administered on 02/06/17 11:18 ; Start 02/06/17 at 11:15; Stop 02/06/17 at 11:16; Status DC Hydralazine HCl (Apresoline) 10 mg PRN Q4HRS PRN IVP ELEVATED BP, SEE COMMENTS ; Start 02/06/17 at 12:15 Oxycodone HCl (Roxicodone) 5 mg PRN Q6HRS PRN PO MODERATE TO SEVERE PAIN Last administered on 02/06/17 14:01; Start 02/06/17 at 12:15 Ketorolac Tromethamine (Toradol) 30 mg 1X ONCE IV ; Start 02/06/17 at 14:45; Stop 02/06/17 at 14:52; Status DC Topiramate (Topamax) 25 mg BID PO Last administered on 02/07/17t 08:54; Start 02/06/17 at 21:00 Active Scripts Active Reported [ibuprofen] PRN Allopurinol 300 Mg Tablet 1 Tab PO DAILY PRN Vitals/I & O Vital Sign - Last 24 Hours 02/06/17 02/06/17 02/06/17 02/06/17 14:01 15:00 15:01 19:44 Temp 97.4 97.9 97.4 97.9 Pulse 79 83 Resp 20 18 B/P (MAP) 122/75 (91) 112/64 (80) Pulse Ox 97 97 97 96 O2 Delivery Nasal Cannula Room Air Nasal Cannula Room Air O2 Flow Rate 2.0 2.0 02/06/17 02/07/17 02/07/17 23:45 03:00 07:10 Temp 97.7 98.3 98.7 97.7 98.3 98.7 Pulse 67 68 76 Resp 18 18 16 B/P (MAP) 111/60 (77) 130/76 (94) 135/82 (99) Pulse Ox 99 92 98 O2 Delivery Room Air Nasal Cannula Nasal Cannula O2 Flow Rate 2.0 2.0 TRACIE LOPEZ MD Feb 07, 2017 09:58
[2017-02-07] MEDS: IBUPROFEN 800 MG TABLET. PO SCH ×2 (10:30→14:00)
[2017-02-07 11:28] VITALS: BP 127/62
[2017-02-07] MEDS ORDERED: IBUP800T19 PO (14:35)
[2017-02-07] MEDS ORDERED: ASPI325T8 PO (14:35)
[2017-02-07] MEDS ORDERED: BUTA1TAB23 PO (14:35)
[2017-02-07] MEDS ORDERED: TOPI25TA52 PO (14:35)
[2017-02-07 14:55] VITALS: BP 130/79
--- NOTE | 2017-02-07 16:14 | PDOC ---
PROGRESS NOTES Assessment Assessment Seizure or seizure like episode x 1. Syncope? Worsening of chronic headaches. Left side numbness and tingling. UTI Gout. 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 No evidence of acute CVA this time. RECOMMENDATIONS/PLAN: Topamax 25 mg bid for headaches, increase 25 mg q week until 100 mg bid. ASA 325 mg daily. Avoid driving x 6 months. Patient education for seizure precautions. FU with PCP. FU with Neurology in 2 weeks. Discussed with his on 02/07/17. Brain MRI w/wo contrast plus seizure protocol: negative. EEG on 02/06: Normal study. HISTORY OF THE PRESENT ILLNESS: 51-y-old male patient with above medical disease and chronic headaches for many years and has been taken ASA and other OTC frequently for his headaches. He had increased headaches on 02/05/17 and took ASA as usual. He then had an episode of seizure vs syncope while sitting in the truck. He felt warm, nausea, left side face and left UE and lE numbness and tingling, then lost consciousness and had some shaking movements for a brief period of time per his co-worker. He was therefore, brought to the ER of [facility] for further evaluation. HIs HCT and CTA were negative in the ER. His symptoms largely resolved in the ER except mild numbness in his left side of the face. His symptoms resolved since 02/06/17. Past Medical History Rheumatologic: Gout Past Surgical History No pertinent history Family History Hypertension Social History Smoke: No ALCOHOL: occasionally Drugs: None ALLERGY: NKDA MEDICATIONS: Refer to MAR REVIEW OF SYSTEMS: Constitutional: No malnutrition, weight loss, cachexia. Head: No recent traumatic brain or head injury. Skin: No edema, or rash. Ear: No infection. Eyes: No vision loss or color blindness. Nose: No bleeding or purulent discharges. Hearing: No hearing decrease. Neck: No recent injury. Cardiac: No GA, arrhythmia, Pulmonary: No pneumonia. GI: No GI ulcer, GI bleeding. Urinary/genital: No dysuria, incontinence, urinary retention. Endocrinologic: No cousin face, craniofacial dysmorphism, polydactyly. Skeletomuscular: No muscular atrophy, deformity. Neurological: see HP. Psychiatric: Denies drug use/abuse. Otherwise, not [id number] review of systems. PHYSICAL EXAMINATION: General appearance is in mild anxious. HEENT: Normocephalic and nontraumatic. Eyes, nose, ears, and throat are unremarkable. Neck is supple. No lymphadenopathy. No bruits are heard over the carotid artery. No crepitus. Cardiovascular: S1, S2, regular rate and rhythm. Pulmonary: Clear to auscultation bilaterally. Abdomen: Bowel sounds are positive. Abdomen is soft, nontender, and nondistended. Extremities: No rash, lesions, or edema. No restriction of range of motion NEUROLOGICAL EXAMINATION: Alert Oriented to time, place and person. PERRL. EOMI. CN: no focal findings. Muscle tone: within normal. Muscle strength: 5 DTR: 2 Plantar reflex: Flexor response bilaterally Gait: At baseline normal. Sensory exam: no abnormal findings. No cerebellar signs elicited. F-T-N test accurate. Objective Objective Vital Signs Date Time Temp Pulse Resp B/P (MAP) Pulse Ox O2 Delivery O2 Flow Rate FiO2 02/07/17 14:55 97.4 74 19 130/79 (96) 95 Nasal Cannula 2.0 97.4 Intake and Output 02/08/17 07:00 Intake Total 600 ml Output Total 100 ml Balance 500 ml Intake Oral 600 ml Output Urine Total 100 ml Vitals Signs Vitals VS - Last 72 Hours, by Label Date Time Temp Pulse Resp B/P (MAP) Pulse Ox O2 Delivery O2 Flow Rate FiO2 02/07/17 14:55 97.4 74 19 130/79 (96) 95 Nasal Cannula 2.0 97.4 02/07/17 11:28 98.2 72 17 127/62 (83) 92 Nasal Cannula 2.0 98.2 02/07/17 08:00 Room Air 2.0 02/07/17 07:10 98.7 76 16 135/82 (99) 98 Nasal Cannula 2.0 98.7 02/07/17 03:00 98.3 68 18 130/76 (94) 92 Nasal Cannula 2.0 98.3 02/06/17 23:45 97.7 67 18 111/60 (77) 99 Room Air 97.7 02/06/17 19:44 97.9 83 18 112/64 (80) 96 Room Air 97.9 02/06/17 15:01 97 Nasal Cannula 2.0 02/06/17 15:00 97.4 79 20 122/75 (91) 97 Room Air 97.4 02/06/17 14:01 97 Nasal Cannula 2.0 02/06/17 08:43 97 Nasal Cannula 2.0 02/06/17 08:13 97 Nasal Cannula 2.0 02/06/17 08:00 Nasal Cannula 2.0 02/06/17 07:00 97.6 86 18 129/86 (100) 97 Nasal Cannula 2.0 97.6 Medication Medications Current Medications Ibuprofen (Motrin) 800 mg TID PO ; Start 02/07/17 at 10:30 Topiramate (Topamax) 25 mg BID PO Last administered on 02/07/17t 08:54; Start 02/06/17 at 21:00 Comment Review of Relevant I have reviewed the following items anders (where applicable) has been applied. LAUREN EPSTEIN MD Feb 07, 2017 16:14
--- NOTE | 2017-02-09 18:17 | DS ---
DATE OF DISCHARGE: 02/07/2017 CHIEF COMPLAINT: Neurological deficits. HOSPITAL COURSE: The patient is a 51-year-old gentleman who had an episode with loss of consciousness, unclear if seizure versus syncope at work. He was admitted with complaint of severe headaches, and neurology consult was obtained. He was ruled out for neurological issues with brain MRI as well as EEG. He was given Topamax for severe headaches with a tapering up schedule. On further scan of his spine, he was found with multilevel degenerative disk disease, but no other abnormality. The patient was deemed appropriate for home once workup was completed and symptoms were improved. 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 Dr. Laureano consulted Dr. Aldana who did not deem this in need of acute surgical intervention. PHYSICAL EXAM: VS: stable GEN: A&O, NAD CV: RRR PULM: clar ABD: BS+, SNT EXTR: no edema DISCHARGE DIAGNOSES: Headaches, stress, question syncope versus conversion disorder. DISCHARGE DISPOSITION: To home. DISCHARGE CONDITION: Improved. DISCHARGE MEDICATIONS: Please refer to MAR. DISCHARGE INSTRUCTIONS: The patient will follow up with his primary care physician LEON. TACHO LOZA MD DR: UR/nts JOB#: [id number] / [id number] MARTI Worthy MD MTDD
== END 2017-02-07 18:31 | disposition home or self-care (01) | DRG 74 ==
LOC: ER 19:26 → 6 SOUTH 20:28
PROVIDERS: ADMIT Internal Medicine; ATTEND Internal Medicine
DX: G62.9 Polyneuropathy, unspecified (principal); R56.9 Unspecified convulsions; N39.0 Urinary tract infection, site not specified; R51 Headache; F44.4 Conversion disorder with motor symptom or deficit; I10 Essential (primary) hypertension; R55 Syncope and collapse; G47.33 Obstructive sleep apnea (adult) (pediatric); H53.2 Diplopia; M10.9 Gout, unspecified; M25.80 Other specified joint disorders, unspecified joint; F44.9 Dissociative and conversion disorder, unspecified; M70.20 Olecranon bursitis, unspecified elbow; Z79.82 Long term (current) use of aspirin; Z82.49 Family history of ischemic heart disease and other diseases of the circulatory system
CPT/HCPCS: 36415; 70450; 70496; 70498; 70553; 71010; 72141; 73070; 80047; 80048; 80307; 81001; 82962; 84484; 85025; 85610; 85730; 87086; 93005; 95816; 96374; 96375; A9585; J2405; J3010; Q9967; 97110; 97116; 99285-25; G0479